=== PATIENT | female | born 1945 | race African-American/Black ===

== ENCOUNTER 2018-03-18 01:15 | Inpatient (IN) | payer MEDICARE, BC ==
[~2018-03-18] VITALS: Ht 165.1 cm; Wt 63.5 kg
[2018-03-18 02:27] LABS: BASOPHILS % 0.8 % (0.0-2.0); EOSINOPHILS % 0.1 % (0.0-5.0); HEMATOCRIT. 48.4 % (36.0-48.0); HEMOGLOBIN. 16.7 g/dL (12.0-16.0); LYMPHOCYTES % 12.6 % (20.0-50.0); MEAN CORPUSCULAR HEMOGLOBIN 34.7 pg (28.0-32.0); MEAN CORPUSCULAR VOLUME 100.7 fL (81.0-99.0); MEAN PLATELET VOLUME 10.9 fl (7.4-10.4); MONOCYTES % 5.4 % (2.0-8.0); NEUTROPHILS % 81.1 % (40.0-76.0); PLATELET 188 x1000/uL (130-400); RED BLOOD CELL COUNT 4.81 mill/uL (4.2-5.4); RED CELL DISTRIBUTION WIDTH 14.6 % (11.6-14.6)
[2018-03-18] MEDS ORDERED: ONDANSETRON HCL 4MG/2ML INJ IV ONE (02:30)
[2018-03-18 02:39] LABS: CHLORIDE 94 mEq/L (98-107)
[2018-03-18 03:10] LABS: PROTHROMBIN TIME 9.9 sec (9.1-11.1)
[2018-03-18] MEDS ORDERED: IPRATROPIUM/ALBUTEROL 0.5-3(2.5)MG/3ML NEB HHN ONE (03:30)
[2018-03-18] MEDS ORDERED: ASPIRIN 325MG TABLET PO ONE (03:30)
[2018-03-18] MEDS ORDERED: LEVOFLOXACIN 750MG PREMIX 150 ML IV ONE (03:45)
[2018-03-18] MEDS ORDERED: SODIUM CHLORIDE 0.9% 1000ML BAG (SEPSIS BOLUS) IV ONE (03:45)
[2018-03-18 06:00] VITALS: BP 154/95
[2018-03-18] MEDS ORDERED: ACETAMINOPHEN 325MG TABLET PO PRN (07:00)
[2018-03-18] MEDS ORDERED: ONDANSETRON HCL 4MG/2ML INJ IV PRN (07:00)
[2018-03-18] MEDS ORDERED: MAGNESIUM/ALUMINUM HYDROXIDE/SIMETHICONE 30ML UDC PO PRN (07:00)
[2018-03-18] MEDS ORDERED: CLONIDINE 0.1MG TABLET PO PRN (07:00)
[2018-03-18] MEDS ORDERED: IPRATROPIUM/ALBUTEROL 0.5-3(2.5)MG/3ML NEB INH PRN (07:00)
[2018-03-18] MEDS ORDERED: LEVOFLOXACIN 500MG PREMIX 100 ML IV SCH (07:00)
[2018-03-18] MEDS ORDERED: GUAIFENESIN 200MG/10ML SUGAR FREE UDC PO PRN (07:00)
[2018-03-18] MEDS ORDERED: DOCUSATE SODIUM 100MG CAPSULE PO PRN (07:00)
[2018-03-18 08:00] VITALS: BP 137/80
[2018-03-18] MEDS ORDERED: ENOXAPARIN 40MG/0.4ML SYR SUBCUT SCH (09:00)
[2018-03-18 09:47] VITALS: BP 137/80
[2018-03-18] MEDS: AMLODIPINE 10MG TABLET PO SCH (09:57)
[2018-03-18] MEDS: ASPIRIN 81MG EC TABLET PO SCH (09:57)
[2018-03-18] MEDS: PREGABALIN 50 MG CAPSULE PO SCH ×2 (10:00→21:32)
[2018-03-18 10:27] LABS: T4 FREE 0.96 ng/dL (0.76-1.46)
[2018-03-18 12:00] VITALS: BP 145/92
[2018-03-18] MEDS ORDERED: LORAZEPAM 2MG/ML CPJ IV PRN (14:15)
[2018-03-18] MEDS ORDERED: THIAMINE HCL 100MG TABLET PO SCH (14:30)
[2018-03-18 16:00] VITALS: BP 146/91
[2018-03-18] MEDS: CHLORDIAZEPOXIDE 5 MG CAPSULE PO SCH ×2 (16:01→21:32)
[2018-03-18] MEDS: FOLIC ACID 1MG TABLET PO SCH (16:02)
[2018-03-18] MEDS: MULTIVITAMINS,THER W-MINERALS TABLET PO SCH (16:02)
[2018-03-18] MEDS: HYDROCODONE/ACETAMINOPHEN 5/325MG TABLET PO PRN ×2 (16:04→21:34)
[2018-03-18 16:50] LABS: CLARITY URINE CLEAR (CLEAR); COLOR URINE YELLOW (YELLOW); KETONES URINE NEGATIVE (NEGATIVE); LEUKOCYTE ESTERASE URINE NEGATIVE (NEGATIVE); NITRITE URINE NEGATIVE (NEGATIVE); OCCULT BLOOD URINE TRACE (NEGATIVE); PH URINE 6.5 (4.5-8.0); PROTEIN URINE NEGATIVE (NEGATIVE); SPECIFIC GRAVITY URINE 1.004 (1.005-1.030); UROBILINOGEN URINE 0.2 E.U./dL (0.2-1.0)
[2018-03-18 17:12] LABS: *AMPHETAMINES SCREEN URINE NEGATIVE (NEGATIVE); *BARBITURATES SCREEN URINE NEGATIVE (NEGATIVE); *BENZODIAZEPINES SCREEN URINE NEGATIVE (NEGATIVE); *COCAINE SCREEN URINE NEGATIVE (NEGATIVE)
[2018-03-18 17:13] LABS: CANNABINOID URINE SCREEN PRESUMTIVE POSITIVE (NEGATIVE); METHADONE URINE SCREEN NEGATIVE (NEGATIVE); OPIATES URINE SCREEN PRESUMTIVE POSITIVE (NEGATIVE); PHENCYCLIDINE URINE SCREEN NEGATIVE (NEGATIVE)
[2018-03-18] MEDS ORDERED: LYR25 MT (18:49)
[2018-03-18] MEDS ORDERED: AMLO10TA4 MT (18:55)
[2018-03-18] MEDS: IPRATROPIUM/ALBUTEROL 0.5-3(2.5)MG/3ML NEB HHN SCH (19:54)
[2018-03-18 20:00] VITALS: BP 146/107
[2018-03-18 23:37] LABS: CREATINE KINASE 342 IU/L (26-192)
[2018-03-19] VITALS (11 sets, daily range): BP systolic 98–177; BP diastolic 54–101
[2018-03-19] MEDS: CHLORDIAZEPOXIDE 5 MG CAPSULE PO SCH ×3 (01:29→21:56)
[2018-03-19] MEDS: IPRATROPIUM/ALBUTEROL 0.5-3(2.5)MG/3ML NEB HHN SCH ×2 (02:07→20:50)
[2018-03-19] MEDS: LEVOFLOXACIN 250MG PREMIX 50 ML IV SCH (02:56)
[2018-03-19 05:12] LABS: HEMATOCRIT. 40.3 % (36.0-48.0); MEAN CORPUSCULAR HEMOGLOBIN 34.7 pg (28.0-32.0); MEAN CORPUSCULAR VOLUME 99.7 fL (81.0-99.0); MEAN PLATELET VOLUME 9.5 fl (7.4-10.4); PLATELET 146 x1000/uL (130-400); RED BLOOD CELL COUNT 4.04 mill/uL (4.2-5.4); RED CELL DISTRIBUTION WIDTH 14.7 % (11.6-14.6)
[2018-03-19 06:27] LABS: CHLORIDE 102 mEq/L (98-107)
[2018-03-19 06:43] LABS: HDL CHOLESTEROL 95 mg/dL (40-59); LDL CHOLESTEROL 62 mg/dL (5-100)
[2018-03-19] MEDS ORDERED: KCL 10MEQ/50ML PREMIX 50 ML IV ONE (08:11)
[2018-03-19] MEDS ORDERED: IODIXANOL 320MG/ML 100 ML BOTTLE IV ONE (08:14)
[2018-03-19] MEDS ORDERED: LIDOCAINE HCL 1% 20ML VIAL (Pyxis) INJ ONE (08:14)
[2018-03-19] MEDS ORDERED: MIDAZOLAM HCL 2 MG/2 ML VIAL ONE (08:14)
[2018-03-19] MEDS ORDERED: FENTANYL CITRATE/PF 50MCG/ML 2ML VIAL ONE (08:14)
[2018-03-19] MEDS ORDERED: CEFAZOLIN 1000MG PREMIX 50 ML IV ONE (08:41)
[2018-03-19] MEDS: THIAMINE HCL 100MG TABLET PO SCH (09:00)
[2018-03-19] MEDS: FOLIC ACID 1MG TABLET PO SCH (09:00)
[2018-03-19] MEDS: MULTIVITAMINS,THER W-MINERALS TABLET PO SCH (09:00)
[2018-03-19] MEDS ORDERED: ATROPINE SULFATE 1MG/10ML SYR IV PRN (09:00)
[2018-03-19] MEDS ORDERED: ACETAMINOPHEN 325MG TABLET PO PRN (09:00)
[2018-03-19] MEDS: AMLODIPINE 10MG TABLET PO SCH (09:00)
[2018-03-19] MEDS: PREGABALIN 50 MG CAPSULE PO SCH ×2 (09:00→21:57)
[2018-03-19] MEDS: ASPIRIN 81MG EC TABLET PO SCH (09:00)
[2018-03-19 10:08] LABS: ATYPICAL LYMPHOCYTES 1
[2018-03-19 10:10] LABS: PLATELET ESTIMATE NORMAL
[2018-03-19] MEDS: HYDROCODONE/ACETAMINOPHEN 5/325MG TABLET PO PRN ×3 (10:22→22:03)
[2018-03-19] MEDS: BENZONATATE 100MG CAPSULE PO SCH ×3 (12:22→21:56)
[2018-03-20] VITALS (10 sets, daily range): BP systolic 113–143; BP diastolic 56–87
[2018-03-20] MEDS: IPRATROPIUM/ALBUTEROL 0.5-3(2.5)MG/3ML NEB HHN SCH ×4 (01:03→20:58)
[2018-03-20] MEDS: LEVOFLOXACIN 250MG PREMIX 50 ML IV SCH (04:08)
[2018-03-20] MEDS: HYDROCODONE/ACETAMINOPHEN 5/325MG TABLET PO PRN ×2 (04:26→20:05)
[2018-03-20 05:56] LABS: CHLORIDE 103 mEq/L (98-107)
[2018-03-20 06:08] LABS: BASOPHILS % 0.8 % (0.0-2.0); EOSINOPHILS % 1.2 % (0.0-5.0); HEMATOCRIT. 41.6 % (36.0-48.0); HEMOGLOBIN. 14.4 g/dL (12.0-16.0); LYMPHOCYTES % 33.7 % (20.0-50.0); MEAN CORPUSCULAR HEMOGLOBIN 34.5 pg (28.0-32.0); MEAN CORPUSCULAR VOLUME 99.7 fL (81.0-99.0); MEAN PLATELET VOLUME 9.8 fl (7.4-10.4); MONOCYTES % 14.7 % (2.0-8.0); NEUTROPHILS % 49.6 % (40.0-76.0); PLATELET 147 x1000/uL (130-400); RED BLOOD CELL COUNT 4.17 mill/uL (4.2-5.4); RED CELL DISTRIBUTION WIDTH 14.7 % (11.6-14.6)
[2018-03-20] MEDS: CHLORDIAZEPOXIDE 5 MG CAPSULE PO SCH ×3 (07:12→22:04)
[2018-03-20] MEDS: BENZONATATE 100MG CAPSULE PO SCH ×3 (07:12→22:04)
[2018-03-20] MEDS: FOLIC ACID 1MG TABLET PO SCH (09:39)
[2018-03-20] MEDS: ASPIRIN 81MG EC TABLET PO SCH (09:39)
[2018-03-20] MEDS: MULTIVITAMINS,THER W-MINERALS TABLET PO SCH (09:39)
[2018-03-20] MEDS: THIAMINE HCL 100MG TABLET PO SCH (09:39)
[2018-03-20] MEDS: PREGABALIN 50 MG CAPSULE PO SCH ×2 (09:39→21:00)
[2018-03-20] MEDS: AMLODIPINE 10MG TABLET PO SCH (09:39)
[2018-03-20] MEDS: CARVEDILOL 3.125 MG TABLET PO SCH ×2 (15:21→22:05)
[2018-03-21] VITALS (12 sets, daily range): BP systolic 98–138; BP diastolic 55–83
[2018-03-21] MEDS: IPRATROPIUM/ALBUTEROL 0.5-3(2.5)MG/3ML NEB HHN SCH ×4 (02:00→21:04)
[2018-03-21] MEDS: HYDROCODONE/ACETAMINOPHEN 5/325MG TABLET PO PRN ×3 (06:10→19:30)
[2018-03-21] MEDS: BENZONATATE 100MG CAPSULE PO SCH ×3 (06:10→21:58)
[2018-03-21] MEDS: CHLORDIAZEPOXIDE 5 MG CAPSULE PO SCH ×3 (06:10→21:58)
[2018-03-21] MEDS: THIAMINE HCL 100MG TABLET PO SCH (08:46)
[2018-03-21] MEDS: ASPIRIN 81MG EC TABLET PO SCH (08:46)
[2018-03-21] MEDS: MULTIVITAMINS,THER W-MINERALS TABLET PO SCH (08:46)
[2018-03-21] MEDS: FOLIC ACID 1MG TABLET PO SCH (08:46)
[2018-03-21] MEDS: PREGABALIN 50 MG CAPSULE PO SCH ×2 (08:47→21:58)
[2018-03-21] MEDS: CARVEDILOL 3.125 MG TABLET PO SCH ×2 (08:49→21:58)
[2018-03-21] MEDS: LEVOFLOXACIN 250MG TABLET PO SCH (10:07)
[2018-03-21] MEDS ORDERED: FUROSEMIDE 40MG/4ML VIAL IVP NR (14:00)
[2018-03-22] VITALS (12 sets, daily range): BP systolic 90–130; BP diastolic 46–83
[2018-03-22] MEDS: IPRATROPIUM/ALBUTEROL 0.5-3(2.5)MG/3ML NEB HHN SCH ×2 (01:10→08:44)
[2018-03-22] MEDS: BENZONATATE 100MG CAPSULE PO SCH ×3 (05:02→21:50)
[2018-03-22] MEDS: CHLORDIAZEPOXIDE 5 MG CAPSULE PO SCH ×3 (05:02→21:47)
[2018-03-22] MEDS: HYDROCODONE/ACETAMINOPHEN 5/325MG TABLET PO PRN ×3 (05:03→23:44)
[2018-03-22 07:16] LABS: CHLORIDE 103 mEq/L (98-107)
[2018-03-22] MEDS: PREGABALIN 50 MG CAPSULE PO SCH ×2 (08:03→21:51)
[2018-03-22] MEDS: MULTIVITAMINS,THER W-MINERALS TABLET PO SCH (08:03)
[2018-03-22] MEDS: FOLIC ACID 1MG TABLET PO SCH (08:03)
[2018-03-22] MEDS: THIAMINE HCL 100MG TABLET PO SCH (08:03)
[2018-03-22] MEDS: CARVEDILOL 3.125 MG TABLET PO SCH ×2 (08:03→21:50)
[2018-03-22] MEDS: ASPIRIN 81MG EC TABLET PO SCH (08:04)
[2018-03-22] MEDS ORDERED: POTASSIUM CHLORIDE 20MEQ TABLET SR PO SCH (11:00)
[2018-03-22] MEDS: LEVOFLOXACIN 250MG TABLET PO SCH (11:12)
[2018-03-22] MEDS: AZITHROMYCIN 500 MG TABLET PO SCH (13:00)
[2018-03-22] MEDS ORDERED: GUAIFENESIN-DM 200MG-20MG/10ML UDC PO PRN (13:15)
[2018-03-22] MEDS: IPRATROPIUM BROMIDE (0.02%) 0.5MG/2.5ML NEB HHN SCH ×2 (16:00→21:51)
[2018-03-22 19:51] LABS: CHLORIDE 101 mEq/L (98-107)
[2018-03-23] VITALS (8 sets, daily range): BP systolic 94–150; BP diastolic 57–116
[2018-03-23] MEDS: IPRATROPIUM BROMIDE (0.02%) 0.5MG/2.5ML NEB HHN SCH ×3 (02:24→13:15)
[2018-03-23] MEDS: HYDROCODONE/ACETAMINOPHEN 5/325MG TABLET PO PRN (04:57)
[2018-03-23] MEDS: BENZONATATE 100MG CAPSULE PO SCH (05:04)
[2018-03-23] MEDS: CHLORDIAZEPOXIDE 5 MG CAPSULE PO SCH (05:04)
[2018-03-23 08:09] LABS: CHLORIDE 103 mEq/L (98-107)
[2018-03-23] MEDS: PREGABALIN 50 MG CAPSULE PO SCH (08:39)
[2018-03-23] MEDS: THIAMINE HCL 100MG TABLET PO SCH (08:43)
[2018-03-23] MEDS: FOLIC ACID 1MG TABLET PO SCH (08:43)
[2018-03-23] MEDS: MULTIVITAMINS,THER W-MINERALS TABLET PO SCH (08:43)
[2018-03-23] MEDS: ASPIRIN 81MG EC TABLET PO SCH (08:43)
[2018-03-23] MEDS: AZITHROMYCIN 500 MG TABLET PO SCH (08:43)
[2018-03-23] MEDS: CARVEDILOL 3.125 MG TABLET PO SCH (08:45)
== END 2018-03-23 13:10 | disposition home health service (06) | DRG 280 ==
LOC: ER 01:15 → 7WST 03:31 → EDBEDREQ 03:33 → EDBEDREQTM 03:33 → EDBEDREQSVC 03:33 → ENRESERV 04:20 → 3WST 03-19 09:20
PROVIDERS: ADMIT Hospitalist; ATTEND Hospitalist
PROC: 4A023N7 Measurement of Cardiac Sampling and Pressure, Left Heart, Percutaneous Approach (ICD-10-PCS; principal; 2018-03-19)
PROC: B2111ZZ Fluoroscopy of Multiple Coronary Arteries using Low Osmolar Contrast (ICD-10-PCS; 2018-03-19)
DX: I21.4 Non-ST elevation (NSTEMI) myocardial infarction (principal); J96.00 Acute respiratory failure, unspecified whether with hypoxia or hypercapnia; I40.0 Infective myocarditis; E87.1 Hypo-osmolality and hyponatremia; E87.2 Acidosis; E78.5 Hyperlipidemia, unspecified; B34.9 Viral infection, unspecified; I10 Essential (primary) hypertension; I16.0 Hypertensive urgency; G62.9 Polyneuropathy, unspecified; J40 Bronchitis, not specified as acute or chronic; F41.9 Anxiety disorder, unspecified; F12.90 Cannabis use, unspecified, uncomplicated; R73.9 Hyperglycemia, unspecified; R25.1 Tremor, unspecified; Z87.891 Personal history of nicotine dependence; Z90.710 Acquired absence of both cervix and uterus; Z91.012 Allergy to eggs; Z91.018 Allergy to other foods; Z79.899 Other long term (current) drug therapy; Z82.49 Family history of ischemic heart disease and other diseases of the circulatory system; Z83.3 Family history of diabetes mellitus
CPT/HCPCS: 36415; 71045; 76700; 78582; 80048; 80061; 80305; 82550; 82553; 83036; 83605; 83735; 83880; 84145; 84439; 84443; 84484; 85379; 87804; 93005; 93306; 93458; 93970; 94618; 94640; 97162; A9558; C1760; C1769; C1887; C1893; J0690; J1644; J1650; J1940; J1956; J2250; J2405; J3010; J3480; J3490; J7030; J7040; J7050; J7620; Q9967

== ENCOUNTER 2018-06-04 11:23 | Inpatient (IN) | payer MEDICARE, BC ==
[~2018-06-04] VITALS: Ht 165.1 cm; Wt 59.9 kg
[~2018-06-04 11:23] MED LIST: AMLO10TA4 MT; LYR25 MT
[2018-06-04] MEDS ORDERED: CLONIDINE 0.2MG TABLET PO ONE (12:45)
[2018-06-04] MEDS ORDERED: ASPIRIN 81MG TABLET PO ONE (12:45)
[2018-06-04 13:15] LABS: HEMATOCRIT. 52.2 % (36.0-48.0); HEMOGLOBIN. 18.1 g/dL (12.0-16.0); MEAN CORPUSCULAR VOLUME 97.9 fL (81.0-99.0); MEAN PLATELET VOLUME 9.5 fl (7.4-10.4); PLATELET 230 x1000/uL (130-400); RED BLOOD CELL COUNT 5.33 mill/uL (4.2-5.4); RED CELL DISTRIBUTION WIDTH 13.8 % (11.6-14.6)
[2018-06-04 13:26] LABS: CHLORIDE 96 mEq/L (98-107)
[2018-06-04 13:30] LABS: D-DIMER 0.82 mg/L FEU (<0.50); INR 1.1; PARTIAL THROMBOPLASTIN TIME 28.9 sec (23.4-31.0); PROTHROMBIN TIME 10.7 sec (9.1-11.1)
[2018-06-04 13:49] LABS: PLATELET ESTIMATE NORMAL
[2018-06-04] MEDS ORDERED: NITROGLYCERIN 0.4MG TABLET SL SL PRN (16:45)
[2018-06-04] MEDS ORDERED: ACETAMINOPHEN 325MG TABLET PO PRN (16:45)
[2018-06-04] MEDS ORDERED: IPRATROPIUM/ALBUTEROL 0.5-3(2.5)MG/3ML NEB INH PRN (16:45)
[2018-06-04] MEDS ORDERED: CLONIDINE 0.1MG TABLET PO PRN (16:45)
[2018-06-04] MEDS ORDERED: GUAIFENESIN 200MG/10ML SUGAR FREE UDC PO PRN (16:45)
[2018-06-04] MEDS ORDERED: LORAZEPAM 0.5MG TABLET PO PRN (16:45)
[2018-06-04] MEDS ORDERED: NA PHOS,M-B/NA PHOS,DI-BA ENEMA 118ML PR PRN (16:45)
[2018-06-04] MEDS ORDERED: ONDANSETRON HCL 4MG/2ML INJ IV PRN (16:45)
[2018-06-04] MEDS ORDERED: MAGNESIUM/ALUMINUM HYDROXIDE/SIMETHICONE 30ML UDC PO PRN (16:45)
[2018-06-04] MEDS ORDERED: DOCUSATE SODIUM 100MG CAPSULE PO PRN (16:45)
[2018-06-04] MEDS ORDERED: DIPHENHYDRAMINE 50MG/ML VIAL IV PRN (16:45)
[2018-06-04] MEDS ORDERED: HYDROCODONE/ACETAMINOPHEN 5/325MG TABLET PO ONE (18:45)
[2018-06-04] MEDS ORDERED: MORPHINE SULFATE 4 MG/ML CPJ (NOT FOR IM USE) IV PRN (21:38)
[2018-06-04 21:43] LABS: CLARITY URINE CLEAR (CLEAR); COLOR URINE YELLOW (YELLOW); KETONES URINE NEGATIVE (NEGATIVE); LEUKOCYTE ESTERASE URINE NEGATIVE (NEGATIVE); NITRITE URINE NEGATIVE (NEGATIVE); OCCULT BLOOD URINE NEGATIVE (NEGATIVE); PROTEIN URINE NEGATIVE (NEGATIVE); UROBILINOGEN URINE 0.2 E.U./dL (0.2-1.0)
[2018-06-04 21:53] LABS: *AMPHETAMINES SCREEN URINE NEGATIVE (NEGATIVE); *BARBITURATES SCREEN URINE NEGATIVE (NEGATIVE); *BENZODIAZEPINES SCREEN URINE NEGATIVE (NEGATIVE); *COCAINE SCREEN URINE NEGATIVE (NEGATIVE); METHADONE URINE SCREEN NEGATIVE (NEGATIVE); OPIATES URINE SCREEN NEGATIVE (NEGATIVE); PHENCYCLIDINE URINE SCREEN NEGATIVE (NEGATIVE)
[2018-06-04 21:55] LABS: CANNABINOID URINE SCREEN NEGATIVE (NEGATIVE)
[2018-06-04 22:00] VITALS: BP 131/86
[2018-06-04] MEDS ORDERED: ZOLPIDEM TARTRATE 5MG TABLET PO PRN (22:03)
[2018-06-04] MEDS: METOPROLOL TARTRATE 25MG TABLET PO SCH (22:21)
[2018-06-04] MEDS: FAMOTIDINE 20MG TABLET PO SCH (22:21)
[2018-06-04 22:32] VITALS: BP 131/86
[2018-06-05] VITALS: BP 95/53
[2018-06-05 02:02] LABS: CREATINE KINASE 81 IU/L (26-192)
[2018-06-05 02:04] LABS: CREATINE KINASE MB FRACTION 1.3 ng/mL (0.5-3.6)
[2018-06-05 04:00] VITALS: BP 110/68
[2018-06-05] MEDS ORDERED: PREG150C PO (05:41)
[2018-06-05] MEDS: TRAMADOL 50MG TABLET PO PRN ×2 (06:16→13:48)
[2018-06-05 08:00] VITALS: BP 127/79
[2018-06-05] MEDS: ASPIRIN 325MG EC TABLET PO SCH (08:42)
[2018-06-05] MEDS: ENOXAPARIN 40MG/0.4ML SYR SUBCUT SCH (08:43)
[2018-06-05] MEDS: METOPROLOL TARTRATE 25MG TABLET PO SCH ×2 (08:43→20:53)
[2018-06-05] MEDS: AMLODIPINE 10MG TABLET PO SCH (08:43)
[2018-06-05] MEDS: FAMOTIDINE 20MG TABLET PO SCH ×2 (08:43→20:52)
[2018-06-05 09:24] LABS: CREATINE KINASE 75 IU/L (26-192); CREATINE KINASE MB FRACTION 1.5 ng/mL (0.5-3.6)
[2018-06-05 12:00] VITALS: BP 105/83
[2018-06-05 16:00] VITALS: BP 120/88
[2018-06-05 20:00] VITALS: BP 137/86
[2018-06-06] VITALS: BP 116/76
[2018-06-06 04:00] VITALS: BP 132/83
[2018-06-06] MEDS: ASPIRIN 325MG EC TABLET PO SCH (08:22)
[2018-06-06] MEDS: AMLODIPINE 10MG TABLET PO SCH (08:22)
[2018-06-06] MEDS: FAMOTIDINE 20MG TABLET PO SCH ×2 (08:22→20:29)
[2018-06-06] MEDS: METOPROLOL TARTRATE 25MG TABLET PO SCH ×2 (08:23→20:29)
[2018-06-06] MEDS: ENOXAPARIN 40MG/0.4ML SYR SUBCUT SCH (08:24)
[2018-06-06 12:10] VITALS: BP 118/83
[2018-06-06] MEDS: TRAMADOL 50MG TABLET PO PRN ×2 (12:49→20:30)
[2018-06-06] MEDS: GABAPENTIN 100MG CAPSULE PO SCH ×2 (14:00→20:29)
[2018-06-06 16:21] VITALS: BP 134/78
[2018-06-06 20:00] VITALS: BP 118/80
[2018-06-07] VITALS: BP 119/75
[2018-06-07 04:00] VITALS: BP 113/56
[2018-06-07] MEDS: GABAPENTIN 100MG CAPSULE PO SCH (05:25)
[2018-06-07] MEDS: TRAMADOL 50MG TABLET PO PRN (05:34)
[2018-06-07 08:00] VITALS: BP 116/73
[2018-06-07] MEDS: METOPROLOL TARTRATE 25MG TABLET PO SCH (09:52)
[2018-06-07] MEDS: AMLODIPINE 10MG TABLET PO SCH (09:52)
[2018-06-07] MEDS: FAMOTIDINE 20MG TABLET PO SCH (09:52)
[2018-06-07] MEDS: ASPIRIN 325MG EC TABLET PO SCH (09:52)
[2018-06-07] MEDS: ENOXAPARIN 40MG/0.4ML SYR SUBCUT SCH (09:53)
[2018-06-07 13:08] VITALS: BP 116/73
== END 2018-06-07 14:40 | disposition home or self-care (01) | DRG 313 ==
LOC: ER 13:16 → 5WST 15:06 → EDBEDREQTM 15:09 → EDBEDREQ 15:09 → SUPCPDRO 16:38 → ENRESERV 20:44
PROVIDERS: ADMIT Internal Medicine; ATTEND Internal Medicine
DX: R07.89 Other chest pain (principal); I10 Essential (primary) hypertension; E78.5 Hyperlipidemia, unspecified; J44.9 Chronic obstructive pulmonary disease, unspecified; G62.9 Polyneuropathy, unspecified; I25.10 Atherosclerotic heart disease of native coronary artery without angina pectoris; I25.2 Old myocardial infarction; Z87.891 Personal history of nicotine dependence; Z91.012 Allergy to eggs; Z91.018 Allergy to other foods; Z79.899 Other long term (current) drug therapy
CPT/HCPCS: 36415; 71045; 80061; 80305; 82550; 82553; 83036; 83880; 84484; 85379; 93005; 93970; 94640; 99285; J1650; J2270; J7620

== ENCOUNTER 2018-07-31 09:30 | Inpatient (IN) | payer MEDICARE, BC ==
[~2018-07-31] VITALS: Ht 157.5 cm; Wt 74.8 kg
[2018-07-31] MEDS: ENOXAPARIN 40MG/0.4ML SYR SUBCUT SCH (08:00)
[~2018-07-31 09:30] MED LIST changes: -LYR25 MT; +PREG150C PO
[2018-07-31] MEDS ORDERED: LORAZEPAM 0.5MG TABLET PO ONE (10:30)
[2018-07-31] MEDS ORDERED: METOPROLOL TARTRATE 25MG TABLET PO ONE (10:30)
[2018-07-31] MEDS ORDERED: AMLODIPINE 10MG TABLET PO ONE (10:30)
[2018-07-31] MEDS ORDERED: ALBUTEROL (0.083%) 2.5MG/3ML NEB HHN STA (11:06)
[2018-07-31 11:49] LABS: BASOPHILS % 1.2 % (0.0-2.0); HEMATOCRIT. 43.6 % (36.0-48.0); LYMPHOCYTES % 14.4 % (20.0-50.0); MEAN CORPUSCULAR HEMOGLOBIN 33.7 pg (28.0-32.0); MEAN CORPUSCULAR VOLUME 98.2 fL (81.0-99.0); MEAN PLATELET VOLUME 8.7 fl (7.4-10.4); NEUTROPHILS % 76.4 % (40.0-76.0); PLATELET 257 x1000/uL (130-400); RED BLOOD CELL COUNT 4.44 mill/uL (4.2-5.4); RED CELL DISTRIBUTION WIDTH 15.6 % (11.6-14.6)
[2018-07-31 11:52] LABS: CHLORIDE 102 mEq/L (98-107)
[2018-07-31 11:55] LABS: PARTIAL THROMBOPLASTIN TIME 28.2 sec (23.4-31.0)
[2018-07-31] MEDS ORDERED: LORAZEPAM 2MG/ML CPJ IV ONE (15:00)
[2018-07-31] MEDS ORDERED: CHLORDIAZEPOXIDE 5 MG CAPSULE PO ONE (15:00)
[2018-07-31] MEDS ORDERED: DOCUSATE SODIUM 100MG CAPSULE PO PRN (17:15)
[2018-07-31] MEDS ORDERED: ACETAMINOPHEN 325MG TABLET PO PRN (17:15)
[2018-07-31] MEDS ORDERED: GUAIFENESIN 200MG/10ML SUGAR FREE UDC PO PRN (17:15)
[2018-07-31] MEDS ORDERED: MAGNESIUM/ALUMINUM HYDROXIDE/SIMETHICONE 30ML UDC PO PRN (17:15)
[2018-07-31] MEDS ORDERED: CLONIDINE 0.1MG TABLET PO PRN (17:15)
[2018-07-31] MEDS ORDERED: ONDANSETRON HCL 4MG/2ML INJ IV PRN (17:15)
[2018-07-31] MEDS ORDERED: IPRATROPIUM/ALBUTEROL 0.5-3(2.5)MG/3ML NEB INH PRN (17:15)
[2018-07-31] MEDS ORDERED: IPRATROPIUM/ALBUTEROL 0.5-3(2.5)MG/3ML NEB HHN SCH (17:15)
[2018-07-31] MEDS ORDERED: LEVOFLOXACIN 500MG PREMIX 100 ML IV NR (17:29)
[2018-07-31] MEDS ORDERED: GUAIFENESIN 600MG ER TABLET PO NR (18:03)
[2018-07-31] MEDS ORDERED: GUAIFENESIN/DM 600MG/30MG ER TAB 12HR PO NR (18:15)
[2018-07-31] MEDS: ATORVASTATIN CALCIUM 10MG TABLET PO SCH (21:00)
[2018-07-31] MEDS ORDERED: MVI, ADULT NO.1 10 ML, FOLIC ACID 1 MG, THIAMINE HCL 100 MG in SODIUM CHLORIDE 0.9% 1,0... IV SCH ×4 (21:00)
[2018-07-31 23:31] LABS: CREATINE KINASE 53 IU/L (26-192)
[2018-07-31 23:32] LABS: CREATINE KINASE MB FRACTION 1.1 ng/mL (0.5-3.6)
[2018-08-01] MEDS: ZOLPIDEM TARTRATE 5MG TABLET PO PRN (03:22)
[2018-08-01] MEDS: METHYLPREDNISOLONE SOD SUCC 125 MG/2 ML VIAL IV SCH ×4 (07:45→22:00)
[2018-08-01 08:00] LABS: CREATINE KINASE 60 IU/L (26-192)
[2018-08-01 08:02] LABS: CREATINE KINASE MB FRACTION 1.3 ng/mL (0.5-3.6)
[2018-08-01] MEDS: LORAZEPAM 0.5MG TABLET PO PRN ×2 (08:10→13:17)
[2018-08-01] MEDS: FAMOTIDINE 20MG TABLET PO SCH ×2 (08:10→21:23)
[2018-08-01] MEDS: TRAMADOL 50MG TABLET PO PRN (08:10)
[2018-08-01] MEDS: GUAIFENESIN/DM 600MG/30MG ER TAB 12HR PO SCH ×2 (09:00→21:50)
[2018-08-01] MEDS: ZINC SULFATE 220 MG ( 50 ) CAPSULE PO SCH (09:00)
[2018-08-01] MEDS: ASCORBIC ACID 500 MG TABLET PO SCH ×2 (09:00→21:50)
[2018-08-01] MEDS: ENOXAPARIN 40MG/0.4ML SYR SUBCUT SCH (09:00)
[2018-08-01] MEDS: SUCRALFATE 1 G/10 ML UDC PO SCH ×4 (09:00→21:24)
[2018-08-01] MEDS ORDERED: AMLODIPINE 10MG TABLET PO SCH (09:00)
[2018-08-01] MEDS: NITROGLYCERIN 0.4MG TABLET SL SL PRN ×2 (10:48→11:00)
[2018-08-01] MEDS: CHLORDIAZEPOXIDE 25MG CAPSULE PO SCH ×3 (11:45→21:29)
[2018-08-01] MEDS: DILTIAZEM HCL 60MG TABLET PO SCH ×3 (11:45→18:09)
[2018-08-01] MEDS ORDERED: LORAZEPAM 2MG/ML CPJ IV ONE ×2 (14:15→16:30)
[2018-08-01] MEDS ORDERED: SODIUM CHLORIDE 0.9% 1,000 ML IV ONE (16:22)
[2018-08-01] MEDS ORDERED: CHLORDIAZEPOXIDE 25MG CAPSULE PO ONE (16:30)
[2018-08-01] MEDS: SODIUM CHLORIDE 0.9% 1,000 ML IV SCH (16:32)
[2018-08-01] MEDS ORDERED: MVI, ADULT NO.1 10 ML, FOLIC ACID 1 MG, THIAMINE HCL 100 MG in SODIUM CHLORIDE 0.9% 1,0... IV SCH ×4 (17:15)
[2018-08-01] MEDS ORDERED: LEVOFLOXACIN 500MG PREMIX 100 ML IV NR (17:53)
[2018-08-01] MEDS ORDERED: ATORVASTATIN CALCIUM 10MG TABLET PO SCH (21:07)
[2018-08-01] MEDS: ATORVASTATIN CALCIUM 10MG TABLET PO SCH (22:30)
[2018-08-02] MEDS: DILTIAZEM HCL 60MG TABLET PO SCH ×4 (00:24→17:51)
[2018-08-02] MEDS: SODIUM CHLORIDE 0.9% 1,000 ML IV SCH ×2 (02:53→13:36)
[2018-08-02] MEDS: CHLORDIAZEPOXIDE 25MG CAPSULE PO SCH ×3 (06:00→21:10)
[2018-08-02] MEDS: METHYLPREDNISOLONE SOD SUCC 125 MG/2 ML VIAL IV SCH ×3 (06:00→21:55)
[2018-08-02 09:17] VITALS: BP 126/85
[2018-08-02 09:44] VITALS: BP 126/85
[2018-08-02] MEDS: FAMOTIDINE 20MG TABLET PO SCH ×2 (09:54→21:10)
[2018-08-02] MEDS: ZINC SULFATE 220 MG ( 50 ) CAPSULE PO SCH (09:54)
[2018-08-02] MEDS: SUCRALFATE 1 G/10 ML UDC PO SCH ×4 (09:54→21:10)
[2018-08-02] MEDS: GUAIFENESIN/DM 600MG/30MG ER TAB 12HR PO SCH ×2 (09:54→21:11)
[2018-08-02] MEDS: ASCORBIC ACID 500 MG TABLET PO SCH ×2 (09:54→21:10)
[2018-08-02] MEDS: ENOXAPARIN 40MG/0.4ML SYR SUBCUT SCH (09:58)
[2018-08-02] MEDS ORDERED: METO25TA6 MT (10:40)
[2018-08-02] MEDS ORDERED: ASPI-1158 MT (10:41)
[2018-08-02] MEDS ORDERED: FAMO20TA8 MT (10:45)
[2018-08-02] MEDS ORDERED: TRAM50TA3 MT (10:45)
[2018-08-02] MEDS: THIAMINE HCL 100MG TABLET PO SCH (10:49)
[2018-08-02] MEDS: METOPROLOL TARTRATE 25MG TABLET PO SCH ×2 (10:49→21:10)
[2018-08-02] MEDS: MULTIVITAMINS,THER W-MINERALS TABLET PO SCH (10:49)
[2018-08-02 12:00] VITALS: BP 129/90
[2018-08-02 16:00] VITALS: BP 100/67
[2018-08-02] MEDS ORDERED: LEVOFLOXACIN 500MG PREMIX 100 ML IV SCH (18:00)
[2018-08-02 20:00] VITALS: BP 105/66
[2018-08-02] MEDS: ATORVASTATIN CALCIUM 10MG TABLET PO SCH (21:10)
[2018-08-03] VITALS: BP 105/66
[2018-08-03 04:00] VITALS: BP 105/66
[2018-08-03] MEDS: SODIUM CHLORIDE 0.9% 1,000 ML IV SCH ×2 (04:00→13:03)
[2018-08-03] MEDS: CHLORDIAZEPOXIDE 25MG CAPSULE PO SCH ×3 (06:26→21:20)
[2018-08-03] MEDS: SUCRALFATE 1 G/10 ML UDC PO SCH ×4 (06:26→21:19)
[2018-08-03] MEDS: DILTIAZEM HCL 60MG TABLET PO SCH ×4 (06:26→18:33)
[2018-08-03] MEDS: METHYLPREDNISOLONE SOD SUCC 125 MG/2 ML VIAL IV SCH ×3 (06:27→21:20)
[2018-08-03 08:00] VITALS: BP 140/84
[2018-08-03] MEDS: ENOXAPARIN 40MG/0.4ML SYR SUBCUT SCH (08:53)
[2018-08-03] MEDS: THIAMINE HCL 100MG TABLET PO SCH (08:54)
[2018-08-03] MEDS: GUAIFENESIN/DM 600MG/30MG ER TAB 12HR PO SCH ×2 (08:55→21:20)
[2018-08-03] MEDS: METOPROLOL TARTRATE 25MG TABLET PO SCH ×2 (08:55→21:20)
[2018-08-03] MEDS: FAMOTIDINE 20MG TABLET PO SCH (08:56)
[2018-08-03] MEDS: ASCORBIC ACID 500 MG TABLET PO SCH ×2 (08:56→21:20)
[2018-08-03] MEDS: MULTIVITAMINS,THER W-MINERALS TABLET PO SCH (08:57)
[2018-08-03] MEDS: ZINC SULFATE 220 MG ( 50 ) CAPSULE PO SCH (08:57)
[2018-08-03] MEDS: FOLIC ACID 1MG TABLET PO SCH (08:58)
[2018-08-03 12:00] VITALS: BP 122/81
[2018-08-03 16:00] VITALS: BP 124/84
[2018-08-03] MEDS ORDERED: LEVOFLOXACIN 500MG PREMIX 100 ML IV SCH (18:00)
[2018-08-03 20:00] VITALS: BP 128/73
[2018-08-03] MEDS: ATORVASTATIN CALCIUM 10MG TABLET PO SCH (21:19)
[2018-08-04] VITALS: BP 125/72
[2018-08-04] MEDS: DILTIAZEM HCL 60MG TABLET PO SCH ×4 (00:27→17:48)
[2018-08-04] MEDS: SODIUM CHLORIDE 0.9% 1,000 ML IV SCH ×2 (03:48→22:06)
[2018-08-04 04:00] VITALS: BP 129/75
[2018-08-04] MEDS: CHLORDIAZEPOXIDE 25MG CAPSULE PO SCH (05:34)
[2018-08-04] MEDS: METHYLPREDNISOLONE SOD SUCC 125 MG/2 ML VIAL IV SCH ×3 (05:34→22:00)
[2018-08-04 08:00] VITALS: BP 132/72
[2018-08-04] MEDS: SUCRALFATE 1 G/10 ML UDC PO SCH ×4 (08:30→22:01)
[2018-08-04] MEDS: MULTIVITAMINS,THER W-MINERALS TABLET PO SCH (09:50)
[2018-08-04] MEDS: ASCORBIC ACID 500 MG TABLET PO SCH ×2 (09:51→22:01)
[2018-08-04] MEDS: GUAIFENESIN/DM 600MG/30MG ER TAB 12HR PO SCH ×2 (09:51→22:01)
[2018-08-04] MEDS: METOPROLOL TARTRATE 25MG TABLET PO SCH ×2 (09:51→22:03)
[2018-08-04] MEDS: FOLIC ACID 1MG TABLET PO SCH (09:51)
[2018-08-04] MEDS: THIAMINE HCL 100MG TABLET PO SCH (09:51)
[2018-08-04] MEDS: ZINC SULFATE 220 MG ( 50 ) CAPSULE PO SCH (09:51)
[2018-08-04] MEDS: FAMOTIDINE 20MG TABLET PO SCH (09:52)
[2018-08-04] MEDS: ENOXAPARIN 40MG/0.4ML SYR SUBCUT SCH (09:53)
[2018-08-04] MEDS: LEVOFLOXACIN 500MG TABLET PO SCH (12:23)
[2018-08-04] MEDS: CHLORDIAZEPOXIDE 5 MG CAPSULE PO SCH ×2 (13:07→22:01)
[2018-08-04] MEDS: ATORVASTATIN CALCIUM 10MG TABLET PO SCH (22:01)
[2018-08-04] MEDS: ZOLPIDEM TARTRATE 5MG TABLET PO PRN (22:01)
[2018-08-05] MEDS: DILTIAZEM HCL 60MG TABLET PO SCH ×3 (04:08→12:00)
[2018-08-05] MEDS: TRAMADOL 50MG TABLET PO PRN (05:56)
[2018-08-05] MEDS: CHLORDIAZEPOXIDE 5 MG CAPSULE PO SCH (06:47)
[2018-08-05] MEDS: SUCRALFATE 1 G/10 ML UDC PO SCH ×3 (06:47→16:56)
[2018-08-05] MEDS: METHYLPREDNISOLONE SOD SUCC 125 MG/2 ML VIAL IV SCH ×2 (06:47→13:49)
[2018-08-05 08:00] VITALS: BP 120/72
[2018-08-05] MEDS: METOPROLOL TARTRATE 25MG TABLET PO SCH (08:54)
[2018-08-05] MEDS: FOLIC ACID 1MG TABLET PO SCH (08:54)
[2018-08-05] MEDS: ZINC SULFATE 220 MG ( 50 ) CAPSULE PO SCH (08:55)
[2018-08-05] MEDS: MULTIVITAMINS,THER W-MINERALS TABLET PO SCH (08:55)
[2018-08-05] MEDS: GUAIFENESIN/DM 600MG/30MG ER TAB 12HR PO SCH (08:55)
[2018-08-05] MEDS: FAMOTIDINE 20MG TABLET PO SCH (08:55)
[2018-08-05] MEDS: THIAMINE HCL 100MG TABLET PO SCH (08:55)
[2018-08-05] MEDS: ASCORBIC ACID 500 MG TABLET PO SCH (08:55)
[2018-08-05] MEDS: ENOXAPARIN 40MG/0.4ML SYR SUBCUT SCH (08:57)
[2018-08-05 12:00] VITALS: BP 108/78
[2018-08-05] MEDS: LEVOFLOXACIN 500MG TABLET PO SCH (12:16)
[2018-08-05] MEDS ORDERED: CHLORDIAZEPOXIDE 5 MG CAPSULE PO SCH (14:00)
[2018-08-05 16:00] VITALS: BP 134/89
[2018-08-05 16:56] VITALS: BP 134/89
== END 2018-08-05 17:45 | DRG 191 ==
LOC: ER 10:17 → EDBEDREQ 15:00 → 8WST 15:05 → EDBEDREQ 15:13 → ENRESERV 08-02 07:15
PROVIDERS: ADMIT Internal Medicine; ATTEND Internal Medicine
DX: J44.1 Chronic obstructive pulmonary disease with (acute) exacerbation (principal); F10.239 Alcohol dependence with withdrawal, unspecified; I10 Essential (primary) hypertension; G62.9 Polyneuropathy, unspecified; I25.10 Atherosclerotic heart disease of native coronary artery without angina pectoris; Y90.9 Presence of alcohol in blood, level not specified; R29.810 Facial weakness; R26.89 Other abnormalities of gait and mobility; R53.81 Other malaise; I25.2 Old myocardial infarction; Z72.0 Tobacco use; Z82.49 Family history of ischemic heart disease and other diseases of the circulatory system; Z91.012 Allergy to eggs; Z91.018 Allergy to other foods; Z79.899 Other long term (current) drug therapy
CPT/HCPCS: 36415; 70551; 71045; 80061; 80320; 82550; 82553; 82962; 83036; 83880; 84443; 84484; 93005; 93970; 94640; 96365; 96366; 96375; 97110; 97116; 97162; 97166; 97530; 97535; 99284; 99285; C1893; J1650; J1956; J2060; J2930; J3411; J3490; J7030; J7611; G0480

== ENCOUNTER 2018-08-05 18:11 | Inpatient (IN) | payer MEDICARE, BC ==
[~2018-08-05] VITALS: Ht 157.5 cm; Wt 74.8 kg
[~2018-08-05 18:11] MED LIST changes: +ASPI-1158 MT; +FAMO20TA8 MT; +METO25TA6 MT; +TRAM50TA3 MT
[2018-08-05] MEDS ORDERED: CLONIDINE 0.1MG TABLET PO PRN (19:00)
[2018-08-05] MEDS ORDERED: NITROGLYCERIN 0.4MG TABLET SL SL PRN (19:00)
[2018-08-05] MEDS ORDERED: LORAZEPAM 1MG TABLET PO PRN (19:00)
[2018-08-05] MEDS ORDERED: ONDANSETRON HCL 4MG/2ML INJ IV PRN (19:00)
[2018-08-05] MEDS ORDERED: MAGNESIUM/ALUMINUM HYDROXIDE/SIMETHICONE 30ML UDC PO PRN (19:00)
[2018-08-05] MEDS ORDERED: ACETAMINOPHEN 325MG TABLET PO PRN (19:00)
[2018-08-05 20:00] VITALS: BP 119/64
[2018-08-05 21:00] VITALS: BP 109/64
[2018-08-05] MEDS: DILTIAZEM HCL 60MG TABLET PO SCH (21:00)
[2018-08-05] MEDS: METOPROLOL TARTRATE 25MG TABLET PO SCH (21:02)
[2018-08-05] MEDS: SUCRALFATE 1G TABLET PO SCH (21:02)
[2018-08-05] MEDS: ATORVASTATIN CALCIUM 10MG TABLET PO SCH (21:03)
[2018-08-05] MEDS: ZOLPIDEM TARTRATE 5MG TABLET PO PRN (21:03)
[2018-08-05] MEDS: ASCORBIC ACID 500 MG TABLET PO SCH (21:03)
[2018-08-05] MEDS: CHLORDIAZEPOXIDE 5 MG CAPSULE PO SCH (22:45)
[2018-08-05] MEDS: METHYLPREDNISOLONE SOD SUCC 125 MG/2 ML VIAL IV SCH (22:45)
[2018-08-06] MEDS: IPRATROPIUM/ALBUTEROL 0.5-3(2.5)MG/3ML NEB HHN SCH ×4 (00:34→16:00)
[2018-08-06] MEDS: SUCRALFATE 1G TABLET PO SCH ×4 (06:42→21:14)
[2018-08-06] MEDS: CHLORDIAZEPOXIDE 5 MG CAPSULE PO SCH (06:42)
[2018-08-06] MEDS: METHYLPREDNISOLONE SOD SUCC 125 MG/2 ML VIAL IV SCH ×2 (06:43→14:07)
[2018-08-06] MEDS: DILTIAZEM HCL 60MG TABLET PO SCH ×4 (06:50→17:47)
[2018-08-06 08:00] VITALS: BP 119/65
[2018-08-06] MEDS: ZINC SULFATE 220 MG ( 50 ) CAPSULE PO SCH (09:28)
[2018-08-06] MEDS: METOPROLOL TARTRATE 25MG TABLET PO SCH ×2 (09:29→21:00)
[2018-08-06] MEDS: THIAMINE HCL 100MG TABLET PO SCH (09:29)
[2018-08-06] MEDS: ASCORBIC ACID 500 MG TABLET PO SCH ×2 (09:29→21:15)
[2018-08-06] MEDS: FAMOTIDINE 20MG TABLET PO SCH (09:30)
[2018-08-06] MEDS: MULTIVITAMINS,THER W-MINERALS TABLET PO SCH (09:30)
[2018-08-06] MEDS: FOLIC ACID 1MG TABLET PO SCH (09:30)
[2018-08-06] MEDS: ENOXAPARIN 40MG/0.4ML SYR SUBCUT SCH (09:31)
[2018-08-06 10:05] LABS: BASOPHILS % 0.2 % (0.0-2.0); HEMATOCRIT. 48.2 % (36.0-48.0); HEMOGLOBIN. 16.4 g/dL (12.0-16.0); LYMPHOCYTES % 7.2 % (20.0-50.0); MEAN CORPUSCULAR HEMOGLOBIN 33.5 pg (28.0-32.0); MEAN CORPUSCULAR VOLUME 98.4 fL (81.0-99.0); MEAN PLATELET VOLUME 9.5 fl (7.4-10.4); MONOCYTES % 5.3 % (2.0-8.0); NEUTROPHILS % 87.3 % (40.0-76.0); PLATELET 172 x1000/uL (130-400); RED CELL DISTRIBUTION WIDTH 15.2 % (11.6-14.6)
[2018-08-06 10:16] LABS: CHLORIDE 103 mEq/L (98-107)
[2018-08-06] MEDS ORDERED: LEVOFLOXACIN 500MG TABLET PO SCH (11:00)
[2018-08-06] MEDS ORDERED: POTASSIUM CHLORIDE 20MEQ TABLET SR PO STA (11:35)
[2018-08-06] MEDS: BUPROPION HCL 150MG TABLET XL 24HR PO SCH (12:21)
[2018-08-06] MEDS: POTASSIUM CHLORIDE 20MEQ TABLET SR PO SCH ×2 (12:22→17:46)
[2018-08-06] MEDS ORDERED: KCL 20MEQ/100ML PREMIX 100 ML IV ONE (17:15)
[2018-08-06] MEDS ORDERED: POTASSIUM CHLORIDE 20MEQ/PACKET PO ONE (17:15)
[2018-08-06] MEDS ORDERED: IPRATROPIUM/ALBUTEROL 0.5-3(2.5)MG/3ML NEB HHN PRN (17:15)
[2018-08-06 20:00] VITALS: BP 115/68
[2018-08-06] MEDS: ZOLPIDEM TARTRATE 5MG TABLET PO PRN (21:15)
[2018-08-06] MEDS: ATORVASTATIN CALCIUM 10MG TABLET PO SCH (21:28)
[2018-08-06] MEDS: TRAMADOL 50MG TABLET PO PRN (21:36)
[2018-08-07] MEDS: DILTIAZEM HCL 60MG TABLET PO SCH ×5 (01:32→23:48)
[2018-08-07] MEDS: POTASSIUM CHLORIDE 20MEQ TABLET SR PO SCH (01:34)
[2018-08-07] MEDS: SUCRALFATE 1G TABLET PO SCH ×4 (06:03→21:06)
[2018-08-07 07:20] LABS: HEMATOCRIT. 42.1 % (36.0-48.0); HEMOGLOBIN. 14.3 g/dL (12.0-16.0); MEAN CORPUSCULAR VOLUME 97.2 fL (81.0-99.0); MEAN PLATELET VOLUME 8.7 fl (7.4-10.4); PLATELET 215 x1000/uL (130-400); RED BLOOD CELL COUNT 4.34 mill/uL (4.2-5.4); RED CELL DISTRIBUTION WIDTH 15.7 % (11.6-14.6)
[2018-08-07 08:00] VITALS: BP 117/68
[2018-08-07 08:20] LABS: CHLORIDE 108 mEq/L (98-107)
[2018-08-07 08:28] LABS: PHOSPHORUS 2.3 mg/dL (2.5-4.9)
[2018-08-07 08:42] LABS: CLARITY URINE CLEAR (CLEAR); COLOR URINE YELLOW (YELLOW); KETONES URINE NEGATIVE (NEGATIVE); LEUKOCYTE ESTERASE URINE NEGATIVE (NEGATIVE); NITRITE URINE NEGATIVE (NEGATIVE); OCCULT BLOOD URINE NEGATIVE (NEGATIVE); PH URINE 6.5 (4.5-8.0); PROTEIN URINE NEGATIVE (NEGATIVE); SPECIFIC GRAVITY URINE 1.015 (1.005-1.030); UROBILINOGEN URINE 0.2 E.U./dL (0.2-1.0)
[2018-08-07] MEDS: ZINC SULFATE 220 MG ( 50 ) CAPSULE PO SCH (08:43)
[2018-08-07] MEDS: BUPROPION HCL 150MG TABLET XL 24HR PO SCH (08:43)
[2018-08-07] MEDS: FOLIC ACID 1MG TABLET PO SCH (08:43)
[2018-08-07] MEDS: FAMOTIDINE 20MG TABLET PO SCH (08:43)
[2018-08-07] MEDS: ASCORBIC ACID 500 MG TABLET PO SCH ×2 (08:43→21:06)
[2018-08-07] MEDS: ENOXAPARIN 40MG/0.4ML SYR SUBCUT SCH (08:43)
[2018-08-07] MEDS: METOPROLOL TARTRATE 25MG TABLET PO SCH ×2 (08:44→21:06)
[2018-08-07] MEDS: THIAMINE HCL 100MG TABLET PO SCH (08:44)
[2018-08-07] MEDS: MULTIVITAMINS,THER W-MINERALS TABLET PO SCH (08:44)
[2018-08-07] MEDS ORDERED: POTASSIUM CHLORIDE 20MEQ TABLET SR PO SCH (09:00)
[2018-08-07] MEDS: TRAMADOL 50MG TABLET PO PRN (18:53)
[2018-08-07 20:00] VITALS: BP 118/61
[2018-08-07] MEDS: ATORVASTATIN CALCIUM 10MG TABLET PO SCH (21:06)
[2018-08-07 23:11] LABS: PLATELET ESTIMATE NORMAL
[2018-08-08] MEDS: SUCRALFATE 1G TABLET PO SCH ×4 (06:03→21:13)
[2018-08-08] MEDS: DILTIAZEM HCL 60MG TABLET PO SCH ×4 (06:07→23:46)
[2018-08-08 07:09] LABS: BASOPHILS % 0.1 % (0.0-2.0); EOSINOPHILS % 0.2 % (0.0-5.0); HEMATOCRIT. 44.1 % (36.0-48.0); HEMOGLOBIN. 14.9 g/dL (12.0-16.0); MEAN CORPUSCULAR HEMOGLOBIN 33.1 pg (28.0-32.0); MEAN CORPUSCULAR VOLUME 97.9 fL (81.0-99.0); MEAN PLATELET VOLUME 8.8 fl (7.4-10.4); MONOCYTES % 9.3 % (2.0-8.0); NEUTROPHILS % 76.4 % (40.0-76.0); PLATELET 232 x1000/uL (130-400); RED CELL DISTRIBUTION WIDTH 15.6 % (11.6-14.6)
[2018-08-08 07:10] LABS: CHLORIDE 103 mEq/L (98-107)
[2018-08-08 07:22] LABS: PHOSPHORUS 1.6 mg/dL (2.5-4.9)
[2018-08-08 07:24] LABS: TOTAL IRON BINDING CAPACITY 241 ug/dL (250-450)
[2018-08-08 08:21] VITALS: BP 120/74
[2018-08-08] MEDS: ENOXAPARIN 40MG/0.4ML SYR SUBCUT SCH (08:27)
[2018-08-08] MEDS: BUPROPION HCL 150MG TABLET XL 24HR PO SCH (08:27)
[2018-08-08] MEDS: FOLIC ACID 1MG TABLET PO SCH (08:27)
[2018-08-08] MEDS: ZINC SULFATE 220 MG ( 50 ) CAPSULE PO SCH (08:27)
[2018-08-08] MEDS: THIAMINE HCL 100MG TABLET PO SCH (08:27)
[2018-08-08] MEDS: METOPROLOL TARTRATE 25MG TABLET PO SCH ×2 (08:27→21:00)
[2018-08-08] MEDS: ASCORBIC ACID 500 MG TABLET PO SCH ×2 (08:27→21:13)
[2018-08-08] MEDS: MULTIVITAMINS,THER W-MINERALS TABLET PO SCH (08:27)
[2018-08-08] MEDS: FAMOTIDINE 20MG TABLET PO SCH (08:27)
[2018-08-08 09:58] LABS: FOLIC ACID (FOLATE) SERUM 9.1 ng/mL (>5.38)
[2018-08-08] MEDS: POTASSIUM-SODIUM PHOSPHATE POWDER PACKET PO SCH ×2 (11:43→17:10)
[2018-08-08] MEDS ORDERED: LACTULOSE 20G/30ML UDC PO PRN (12:00)
[2018-08-08 12:44] LABS: ETHANOL BLOOD < 10 mg/dL
[2018-08-08 12:49] LABS: T4 FREE 1.05 ng/dL (0.76-1.46)
[2018-08-08 15:06] LABS: *AMPHETAMINES SCREEN URINE NEGATIVE (NEGATIVE); *BARBITURATES SCREEN URINE PRESUMTIVE POSITIVE (NEGATIVE); *BENZODIAZEPINES SCREEN URINE PRESUMTIVE POSITIVE (NEGATIVE); *COCAINE SCREEN URINE NEGATIVE (NEGATIVE)
[2018-08-08 15:07] LABS: CANNABINOID URINE SCREEN NEGATIVE (NEGATIVE); METHADONE URINE SCREEN NEGATIVE (NEGATIVE); OPIATES URINE SCREEN NEGATIVE (NEGATIVE); PHENCYCLIDINE URINE SCREEN NEGATIVE (NEGATIVE)
[2018-08-08 20:00] VITALS: BP 102/68
[2018-08-08] MEDS: ATORVASTATIN CALCIUM 10MG TABLET PO SCH (21:13)
[2018-08-08] MEDS: TRAMADOL 50MG TABLET PO PRN (21:14)
[2018-08-09] MEDS: DILTIAZEM HCL 60MG TABLET PO SCH ×3 (05:36→18:00)
[2018-08-09] MEDS: SUCRALFATE 1G TABLET PO SCH ×4 (05:50→20:42)
[2018-08-09 07:09] LABS: CHLORIDE 103 mEq/L (98-107)
[2018-08-09 07:15] LABS: PHOSPHORUS 2.1 mg/dL (2.5-4.9)
[2018-08-09 08:00] VITALS: BP 122/85
[2018-08-09] MEDS: METOPROLOL TARTRATE 25MG TABLET PO SCH ×2 (09:00→21:00)
[2018-08-09] MEDS: THIAMINE HCL 100MG TABLET PO SCH (09:39)
[2018-08-09] MEDS: ZINC SULFATE 220 MG ( 50 ) CAPSULE PO SCH (09:39)
[2018-08-09] MEDS: BUPROPION HCL 150MG TABLET XL 24HR PO SCH (09:39)
[2018-08-09] MEDS: FOLIC ACID 1MG TABLET PO SCH (09:39)
[2018-08-09] MEDS: MULTIVITAMINS,THER W-MINERALS TABLET PO SCH (09:39)
[2018-08-09] MEDS: ASCORBIC ACID 500 MG TABLET PO SCH ×2 (09:39→20:42)
[2018-08-09] MEDS: FAMOTIDINE 20MG TABLET PO SCH (09:39)
[2018-08-09] MEDS: POTASSIUM-SODIUM PHOSPHATE POWDER PACKET PO SCH ×2 (09:41→17:02)
[2018-08-09] MEDS: ENOXAPARIN 40MG/0.4ML SYR SUBCUT SCH (09:41)
[2018-08-09] MEDS ORDERED: POTASSIUM CHLORIDE 20MEQ/PACKET PO NR (10:19)
[2018-08-09 20:00] VITALS: BP 107/58
[2018-08-09] MEDS: ATORVASTATIN CALCIUM 10MG TABLET PO SCH (20:42)
[2018-08-09] MEDS: TRAMADOL 50MG TABLET PO PRN (20:53)
[2018-08-10] MEDS: DILTIAZEM HCL 60MG TABLET PO SCH ×2 (00:16→05:55)
[2018-08-10] MEDS: SUCRALFATE 1G TABLET PO SCH ×4 (05:51→21:22)
[2018-08-10 07:53] LABS: CHLORIDE 103 mEq/L (98-107)
[2018-08-10 08:00] VITALS: BP 105/69
[2018-08-10 08:02] LABS: PHOSPHORUS 2.9 mg/dL (2.5-4.9)
[2018-08-10] MEDS: METOPROLOL TARTRATE 25MG TABLET PO SCH ×2 (09:00→21:57)
[2018-08-10] MEDS: FAMOTIDINE 20MG TABLET PO SCH (10:26)
[2018-08-10] MEDS: MULTIVITAMINS,THER W-MINERALS TABLET PO SCH (10:26)
[2018-08-10] MEDS: ASCORBIC ACID 500 MG TABLET PO SCH ×2 (10:26→21:22)
[2018-08-10] MEDS: THIAMINE HCL 100MG TABLET PO SCH (10:26)
[2018-08-10] MEDS: ZINC SULFATE 220 MG ( 50 ) CAPSULE PO SCH (10:26)
[2018-08-10] MEDS: BUPROPION HCL 150MG TABLET XL 24HR PO SCH (10:27)
[2018-08-10] MEDS: FOLIC ACID 1MG TABLET PO SCH (10:27)
[2018-08-10] MEDS: ENOXAPARIN 40MG/0.4ML SYR SUBCUT SCH (10:27)
[2018-08-10] MEDS ORDERED: SODIUM CHLORIDE 0.9% 500 ML IV SCH (13:00)
[2018-08-10 20:00] VITALS: BP 121/74
[2018-08-10] MEDS: ATORVASTATIN CALCIUM 10MG TABLET PO SCH (21:20)
[2018-08-10] MEDS: TRAMADOL 50MG TABLET PO PRN (21:22)
[2018-08-11] MEDS: SUCRALFATE 1G TABLET PO SCH ×4 (07:53→22:10)
[2018-08-11 08:03] VITALS: BP 114/71
[2018-08-11] MEDS: ENOXAPARIN 40MG/0.4ML SYR SUBCUT SCH (08:52)
[2018-08-11] MEDS: FAMOTIDINE 20MG TABLET PO SCH (08:53)
[2018-08-11] MEDS: ZINC SULFATE 220 MG ( 50 ) CAPSULE PO SCH (08:53)
[2018-08-11] MEDS: ASCORBIC ACID 500 MG TABLET PO SCH ×2 (08:53→20:17)
[2018-08-11] MEDS: FOLIC ACID 1MG TABLET PO SCH (08:53)
[2018-08-11] MEDS: THIAMINE HCL 100MG TABLET PO SCH (08:53)
[2018-08-11] MEDS: MULTIVITAMINS,THER W-MINERALS TABLET PO SCH (08:53)
[2018-08-11] MEDS: METOPROLOL TARTRATE 25MG TABLET PO SCH ×2 (08:53→20:17)
[2018-08-11] MEDS: DOCUSATE SODIUM 100MG CAPSULE PO PRN (08:53)
[2018-08-11] MEDS: BUPROPION HCL 150MG TABLET XL 24HR PO SCH (08:53)
[2018-08-11] MEDS: TRAMADOL 50MG TABLET PO PRN ×2 (15:53→17:00)
[2018-08-11 20:00] VITALS: BP 123/71
[2018-08-11] MEDS: GUAIFENESIN 200MG/10ML SUGAR FREE UDC PO PRN (20:07)
[2018-08-11] MEDS: ATORVASTATIN CALCIUM 10MG TABLET PO SCH (20:18)
[2018-08-12] MEDS: TRAMADOL 50MG TABLET PO PRN ×2 (01:07→16:56)
[2018-08-12 07:37] LABS: BASOPHILS % 0.2 % (0.0-2.0); EOSINOPHILS % 1.8 % (0.0-5.0); HEMATOCRIT. 42.2 % (36.0-48.0); HEMOGLOBIN. 14.3 g/dL (12.0-16.0); LYMPHOCYTES % 14.8 % (20.0-50.0); MEAN CORPUSCULAR HEMOGLOBIN 33.2 pg (28.0-32.0); MEAN CORPUSCULAR VOLUME 97.7 fL (81.0-99.0); MEAN PLATELET VOLUME 9.2 fl (7.4-10.4); MONOCYTES % 13.2 % (2.0-8.0); PLATELET 208 x1000/uL (130-400); RED BLOOD CELL COUNT 4.32 mill/uL (4.2-5.4); RED CELL DISTRIBUTION WIDTH 15.2 % (11.6-14.6)
[2018-08-12 08:00] VITALS: BP 112/74
[2018-08-12 08:21] LABS: 25-HYDROXY VITAMIN D3 5.6 ng/mL (.)
[2018-08-12 08:28] LABS: CHLORIDE 102 mEq/L (98-107)
[2018-08-12] MEDS: FAMOTIDINE 20MG TABLET PO SCH (08:36)
[2018-08-12] MEDS: THIAMINE HCL 100MG TABLET PO SCH (08:36)
[2018-08-12] MEDS: ASCORBIC ACID 500 MG TABLET PO SCH ×2 (08:36→20:30)
[2018-08-12] MEDS: FOLIC ACID 1MG TABLET PO SCH (08:36)
[2018-08-12] MEDS: ZINC SULFATE 220 MG ( 50 ) CAPSULE PO SCH (08:36)
[2018-08-12] MEDS: BUPROPION HCL 150MG TABLET XL 24HR PO SCH (08:36)
[2018-08-12] MEDS: DOCUSATE SODIUM 100MG CAPSULE PO PRN (08:36)
[2018-08-12] MEDS: MULTIVITAMINS,THER W-MINERALS TABLET PO SCH (08:36)
[2018-08-12] MEDS: ENOXAPARIN 40MG/0.4ML SYR SUBCUT SCH (08:37)
[2018-08-12 08:38] LABS: PHOSPHORUS 3.2 mg/dL (2.5-4.9)
[2018-08-12] MEDS: SUCRALFATE 1G TABLET PO SCH ×4 (08:55→20:30)
[2018-08-12] MEDS: GUAIFENESIN/DM 600MG/30MG ER TAB 12HR PO PRN (10:55)
[2018-08-12 12:30] VITALS: BP 134/89
[2018-08-12] MEDS: METOPROLOL TARTRATE 25MG TABLET PO SCH ×2 (12:37→21:40)
[2018-08-12] MEDS: LIDOCAINE 5% PATCH TOP SCH (12:38)
[2018-08-12 20:00] VITALS: BP 112/64
[2018-08-12] MEDS: ATORVASTATIN CALCIUM 10MG TABLET PO SCH (20:30)
[2018-08-13] MEDS: TRAMADOL 50MG TABLET PO PRN ×3 (00:02→17:28)
[2018-08-13] MEDS: SUCRALFATE 1G TABLET PO SCH ×4 (06:10→21:18)
[2018-08-13 08:13] VITALS: BP 101/67
[2018-08-13] MEDS: ASCORBIC ACID 500 MG TABLET PO SCH ×2 (08:57→21:18)
[2018-08-13] MEDS: FOLIC ACID 1MG TABLET PO SCH (08:57)
[2018-08-13] MEDS: MULTIVITAMINS,THER W-MINERALS TABLET PO SCH (08:57)
[2018-08-13] MEDS: BUPROPION HCL 150MG TABLET XL 24HR PO SCH (08:57)
[2018-08-13] MEDS: FAMOTIDINE 20MG TABLET PO SCH (08:57)
[2018-08-13] MEDS: THIAMINE HCL 100MG TABLET PO SCH (08:57)
[2018-08-13] MEDS: ZINC SULFATE 220 MG ( 50 ) CAPSULE PO SCH (08:57)
[2018-08-13] MEDS: ENOXAPARIN 40MG/0.4ML SYR SUBCUT SCH (08:58)
[2018-08-13] MEDS: METOPROLOL TARTRATE 25MG TABLET PO SCH ×2 (08:59→21:18)
[2018-08-13] MEDS: LIDOCAINE 5% PATCH TOP SCH (09:01)
[2018-08-13] MEDS ORDERED: LORATADINE 10MG TABLET PO PRN (11:30)
[2018-08-13] MEDS: SODIUM CHLORIDE 45ML SPRAY NS PRN (12:46)
[2018-08-13 13:37] LABS: HEPATITIS B SURFACE ANTIGEN NEGATIVE
[2018-08-13 20:00] VITALS: BP 112/66
[2018-08-13] MEDS ORDERED: ERGOCALCIFEROL 50000UNITS CAPSULE PO SCH (20:00)
[2018-08-13] MEDS: ATORVASTATIN CALCIUM 10MG TABLET PO SCH (21:18)
[2018-08-14] MEDS: SODIUM CHLORIDE 45ML SPRAY NS PRN (03:43)
[2018-08-14] MEDS: SUCRALFATE 1G TABLET PO SCH ×4 (06:59→21:11)
[2018-08-14] MEDS: TRAMADOL 50MG TABLET PO PRN ×2 (07:11→17:32)
[2018-08-14 08:00] VITALS: BP 118/76
[2018-08-14] MEDS: LIDOCAINE 5% PATCH TOP SCH (08:34)
[2018-08-14] MEDS: ZINC SULFATE 220 MG ( 50 ) CAPSULE PO SCH (08:35)
[2018-08-14] MEDS: MULTIVITAMINS,THER W-MINERALS TABLET PO SCH (08:35)
[2018-08-14] MEDS: FAMOTIDINE 20MG TABLET PO SCH (08:35)
[2018-08-14] MEDS: GUAIFENESIN 200MG/10ML SUGAR FREE UDC PO PRN ×2 (08:35→21:11)
[2018-08-14] MEDS: ENOXAPARIN 40MG/0.4ML SYR SUBCUT SCH (08:35)
[2018-08-14] MEDS: ASCORBIC ACID 500 MG TABLET PO SCH ×2 (08:35→21:11)
[2018-08-14] MEDS: FOLIC ACID 1MG TABLET PO SCH (08:35)
[2018-08-14] MEDS: METOPROLOL TARTRATE 25MG TABLET PO SCH ×2 (08:36→21:11)
[2018-08-14] MEDS: THIAMINE HCL 100MG TABLET PO SCH (08:36)
[2018-08-14] MEDS: BUPROPION HCL 150MG TABLET XL 24HR PO SCH (08:36)
[2018-08-14 20:00] VITALS: BP 135/74
[2018-08-14] MEDS: ATORVASTATIN CALCIUM 10MG TABLET PO SCH (21:11)
[2018-08-15] MEDS: SUCRALFATE 1G TABLET PO SCH ×4 (06:03→20:48)
[2018-08-15] MEDS: TRAMADOL 50MG TABLET PO PRN ×2 (06:04→16:18)
[2018-08-15 08:00] VITALS: BP 110/70
[2018-08-15] MEDS: FOLIC ACID 1MG TABLET PO SCH (08:59)
[2018-08-15] MEDS: MULTIVITAMINS,THER W-MINERALS TABLET PO SCH (08:59)
[2018-08-15] MEDS: FAMOTIDINE 20MG TABLET PO SCH (08:59)
[2018-08-15] MEDS: BUPROPION HCL 150MG TABLET XL 24HR PO SCH (08:59)
[2018-08-15] MEDS: THIAMINE HCL 100MG TABLET PO SCH (08:59)
[2018-08-15] MEDS: ZINC SULFATE 220 MG ( 50 ) CAPSULE PO SCH (08:59)
[2018-08-15] MEDS: ASCORBIC ACID 500 MG TABLET PO SCH ×2 (08:59→20:48)
[2018-08-15] MEDS: METOPROLOL TARTRATE 25MG TABLET PO SCH ×2 (09:00→20:48)
[2018-08-15] MEDS: ENOXAPARIN 40MG/0.4ML SYR SUBCUT SCH (09:00)
[2018-08-15] MEDS: LIDOCAINE 5% PATCH TOP SCH (09:02)
[2018-08-15] MEDS: SODIUM CHLORIDE 45ML SPRAY NS PRN (16:19)
[2018-08-15] MEDS: GUAIFENESIN 200MG/10ML SUGAR FREE UDC PO PRN ×2 (17:45→20:49)
[2018-08-15 20:00] VITALS: BP 135/87
[2018-08-15] MEDS: ATORVASTATIN CALCIUM 10MG TABLET PO SCH (20:48)
[2018-08-16] MEDS ORDERED: TRAMADOL 50MG TABLET PO PRN (03:00)
[2018-08-16] MEDS: SUCRALFATE 1G TABLET PO SCH ×4 (05:11→20:40)
[2018-08-16] MEDS: GUAIFENESIN 200MG/10ML SUGAR FREE UDC PO PRN ×2 (05:31→23:21)
[2018-08-16 06:49] LABS: CHLORIDE 100 mEq/L (98-107)
[2018-08-16 06:59] LABS: PHOSPHORUS 2.7 mg/dL (2.5-4.9)
[2018-08-16 07:01] LABS: BASOPHILS % 0.9 % (0.0-2.0); EOSINOPHILS % 1.4 % (0.0-5.0); HEMATOCRIT. 40.5 % (36.0-48.0); HEMOGLOBIN. 13.8 g/dL (12.0-16.0); LYMPHOCYTES % 21.5 % (20.0-50.0); MEAN CORPUSCULAR HEMOGLOBIN 32.9 pg (28.0-32.0); MEAN CORPUSCULAR VOLUME 97.1 fL (81.0-99.0); MEAN PLATELET VOLUME 8.3 fl (7.4-10.4); MONOCYTES % 13.8 % (2.0-8.0); NEUTROPHILS % 62.4 % (40.0-76.0); PLATELET 238 x1000/uL (130-400); RED BLOOD CELL COUNT 4.18 mill/uL (4.2-5.4); RED CELL DISTRIBUTION WIDTH 15.4 % (11.6-14.6)
[2018-08-16 08:22] VITALS: BP 120/79
[2018-08-16] MEDS: ZINC SULFATE 220 MG ( 50 ) CAPSULE PO SCH (08:40)
[2018-08-16] MEDS: MULTIVITAMINS,THER W-MINERALS TABLET PO SCH (08:40)
[2018-08-16] MEDS: ASCORBIC ACID 500 MG TABLET PO SCH ×2 (08:40→20:42)
[2018-08-16] MEDS: FAMOTIDINE 20MG TABLET PO SCH (08:40)
[2018-08-16] MEDS: ENOXAPARIN 40MG/0.4ML SYR SUBCUT SCH (08:41)
[2018-08-16] MEDS: METOPROLOL TARTRATE 25MG TABLET PO SCH ×2 (08:41→21:00)
[2018-08-16] MEDS: FOLIC ACID 1MG TABLET PO SCH (08:41)
[2018-08-16] MEDS: THIAMINE HCL 100MG TABLET PO SCH (08:41)
[2018-08-16] MEDS: BUPROPION HCL 150MG TABLET XL 24HR PO SCH (08:41)
[2018-08-16] MEDS: LIDOCAINE 5% PATCH TOP SCH (08:42)
[2018-08-16] MEDS: SODIUM CHLORIDE 45ML SPRAY NS PRN (11:02)
[2018-08-16] MEDS: TRAMADOL 50MG TABLET PO PRN ×2 (14:02→20:41)
[2018-08-16 20:07] VITALS: BP 143/88
[2018-08-16] MEDS: ATORVASTATIN CALCIUM 10MG TABLET PO SCH (20:42)
[2018-08-17] MEDS: SUCRALFATE 1G TABLET PO SCH ×2 (05:55→12:30)
[2018-08-17 08:00] VITALS: BP 107/70
[2018-08-17] MEDS: FOLIC ACID 1MG TABLET PO SCH (08:18)
[2018-08-17] MEDS: ASCORBIC ACID 500 MG TABLET PO SCH (08:18)
[2018-08-17] MEDS: FAMOTIDINE 20MG TABLET PO SCH (08:18)
[2018-08-17] MEDS: MULTIVITAMINS,THER W-MINERALS TABLET PO SCH (08:18)
[2018-08-17] MEDS: ZINC SULFATE 220 MG ( 50 ) CAPSULE PO SCH (08:18)
[2018-08-17] MEDS: THIAMINE HCL 100MG TABLET PO SCH (08:18)
[2018-08-17] MEDS: BUPROPION HCL 150MG TABLET XL 24HR PO SCH (08:18)
[2018-08-17] MEDS: ENOXAPARIN 40MG/0.4ML SYR SUBCUT SCH (08:19)
[2018-08-17] MEDS: LIDOCAINE 5% PATCH TOP SCH (08:27)
[2018-08-17] MEDS: METOPROLOL TARTRATE 25MG TABLET PO SCH (08:31)
[2018-08-17 10:45] VITALS: BP 135/88
[2018-08-17 11:02] VITALS: BP 135/88
[2018-08-17] MEDS: GUAIFENESIN/DM 600MG/30MG ER TAB 12HR PO PRN (12:30)
== END 2018-08-17 13:40 | disposition home health service (06) | DRG 91 ==
PROVIDERS: ADMIT Physical Medicine & Rehabilitation Spinal Cord Injury Medicine; ATTEND Internal Medicine
DX: G92 Toxic encephalopathy (principal); I21.9 Acute myocardial infarction, unspecified; J44.1 Chronic obstructive pulmonary disease with (acute) exacerbation; F10.239 Alcohol dependence with withdrawal, unspecified; C94.00 Acute erythroid leukemia, not having achieved remission; G31.2 Degeneration of nervous system due to alcohol; E87.6 Hypokalemia; I10 Essential (primary) hypertension; G62.9 Polyneuropathy, unspecified; R53.81 Other malaise; F32.9 Major depressive disorder, single episode, unspecified; I25.10 Atherosclerotic heart disease of native coronary artery without angina pectoris; R29.810 Facial weakness; F41.9 Anxiety disorder, unspecified; E83.39 Other disorders of phosphorus metabolism; F09 Unspecified mental disorder due to known physiological condition; I25.2 Old myocardial infarction
CPT/HCPCS: 36415; 73521; 80048; 80305; 80320; 82140; 82306; 82607; 82728; 82746; 83036; 83540; 83550; 83735; 84100; 84134; 84439; 84443; 84481; 84484; 92523; 92610; 93005; 94640; 97110; 97112; 97116; 97162; 97166; 97530; 97535; A6261; G0515; J1650; J2930; J7040; J7620; G0480

== ENCOUNTER 2019-07-24 23:21 | Emergency (ER) | payer MEDICARE, BC ==
[~2019-07-24] VITALS: Ht 167.6 cm; Wt 61.0 kg
[2019-07-25] MEDS ORDERED: MAGNESIUM/ALUMINUM HYDROXIDE/SIMETHICONE 30ML UDC PO STA (01:12)
[2019-07-25 01:42] LABS: BASOPHILS % 0.5 % (0.0-2.0); EOSINOPHILS % 0.3 % (0.0-5.0); HEMATOCRIT. 48.3 % (36.0-48.0); LYMPHOCYTES % 19.1 % (20.0-50.0); MEAN CORPUSCULAR HEMOGLOBIN 32.2 pg (28.0-32.0); MEAN CORPUSCULAR VOLUME 91.8 fL (81.0-99.0); MEAN PLATELET VOLUME 8.4 fl (7.4-10.4); MONOCYTES % 8.4 % (2.0-8.0); NEUTROPHILS % 71.7 % (40.0-76.0); PLATELET 280 x1000/uL (130-400); RED BLOOD CELL COUNT 5.27 mill/uL (4.2-5.4)
[2019-07-25 01:45] LABS: CHLORIDE 100 mEq/L (98-107)
[2019-07-25] MEDS ORDERED: POTASSIUM CHLORIDE 20MEQ TABLET SR PO ONE (03:30)
[2019-07-25] MEDS ORDERED: ONDANSETRON 4MG ODT PO ONE (03:30)
[2019-07-25 03:42] VITALS: BP 126/83
== END 2019-07-25 04:14 | disposition home or self-care (01) ==
LOC: ER 23:21
DX: R10.13 Epigastric pain (principal); I10 Essential (primary) hypertension; E87.6 Hypokalemia; I25.2 Old myocardial infarction; Z91.012 Allergy to eggs; Z91.018 Allergy to other foods; Z79.82 Long term (current) use of aspirin
CPT/HCPCS: 36415; 71045; 74176; 80053; 83605; 83690; 84484; 85025; 93005; 99285; Q0162

== ENCOUNTER 2020-01-24 15:57 | Inpatient (IN) | payer MEDICARE, BC ==
[~2020-01-24] VITALS: Ht 165.1 cm
[2020-01-24] MEDS ORDERED: SODIUM CHLORIDE 0.9% 1,000 ML IV ONE (16:40)
[2020-01-24] MEDS ORDERED: KETOROLAC 30MG/ML VIAL IV STA (16:40)
[2020-01-24] MEDS ORDERED: ONDANSETRON HCL 4MG/2ML INJ IV STA (16:40)
[2020-01-24] MEDS ORDERED: FAMOTIDINE 20MG/2ML VIAL IV STA (16:40)
[2020-01-24 17:12] LABS: COLOR URINE YELLOW (YELLOW); KETONES URINE NEGATIVE (NEGATIVE); LEUKOCYTE ESTERASE URINE 1+ (NEGATIVE); NITRITE URINE NEGATIVE (NEGATIVE); OCCULT BLOOD URINE NEGATIVE (NEGATIVE); PROTEIN URINE NEGATIVE (NEGATIVE); SPECIFIC GRAVITY URINE 1.006 (1.005-1.030); UROBILINOGEN URINE 0.2 E.U./dL (0.2-1.0)
[2020-01-24 17:14] LABS: CLARITY URINE HAZY (CLEAR)
[2020-01-24 17:16] LABS: CHLORIDE 102 mEq/L (98-107)
[2020-01-24 17:20] LABS: INR 1.1
[2020-01-24 17:35] LABS: EOSINOPHILS % 1.3 % (0.0-5.0); HEMOGLOBIN. 15.9 g/dL (12.0-16.0); MEAN CORPUSCULAR HEMOGLOBIN 30.3 pg (28.0-32.0); MEAN CORPUSCULAR VOLUME 89.4 fL (81.0-99.0); MEAN PLATELET VOLUME 8.8 fl (7.4-10.4); MONOCYTES % 10.3 % (2.0-8.0); NEUTROPHILS % 53.4 % (40.0-76.0); PLATELET 182 x1000/uL (130-400); RED BLOOD CELL COUNT 5.26 mill/uL (4.2-5.4); RED CELL DISTRIBUTION WIDTH 16.3 % (11.6-14.6)
[2020-01-24] MEDS ORDERED: MORPHINE SULFATE 4 MG/ML CPJ (NOT FOR IM USE) IV ONE (18:15)
[2020-01-24] MEDS ORDERED: CLONIDINE 0.1MG TABLET PO PRN (18:45)
[2020-01-24] MEDS ORDERED: ONDANSETRON HCL 4MG/2ML INJ IV PRN (18:45)
[2020-01-24] MEDS ORDERED: ENOXAPARIN 40MG/0.4ML SYR SUBCUT SCH (18:45)
[2020-01-24] MEDS ORDERED: PIPERACILLIN/TAZ 3.375G PREMIX 50 ML IV SCH (18:45)
[2020-01-24] MEDS ORDERED: ACETAMINOPHEN 325MG TABLET PO PRN (18:45)
[2020-01-24] MEDS ORDERED: PIPERACILLIN/TAZOBACTAM 2.25 G in DEXTROSE 5% WATER 50 ML IV SCH (19:00)
[2020-01-24] MEDS: DEXT 5%/0.45% NACL 1000ML 1,000 ML IV SCH (19:12)
[2020-01-24] MEDS: PANTOPRAZOLE SODIUM 40 MG/VIAL IV SCH (19:29)
[2020-01-24 20:00] VITALS: BP 112/81
[2020-01-24 20:22] VITALS: BP 112/81
[2020-01-24] MEDS: ENOXAPARIN 30MG/0.3ML SYR SUBCUT SCH (20:40)
[2020-01-24] MEDS: HYDROMORPHONE HCL/PF 2MG/ML CPJ IV PRN (20:40)
[2020-01-24] MEDS: PIPERACILLIN/TAZOBACTAM 2.25 G in DEXTROSE 5% WATER 50 ML IV SCH (22:11)
[2020-01-24] MEDS ORDERED: OMEP40CA12 PO (23:08)
[2020-01-24] MEDS ORDERED: AMLO5TAB88 PO (23:08)
[2020-01-24] MEDS ORDERED: PREG75CA75 PO (23:08)
[2020-01-24] MEDS ORDERED: METR-167 PO (23:08)
[2020-01-24] MEDS ORDERED: POTA10TA42 PO (23:08)
[2020-01-24] MEDS ORDERED: METO-396 PO (23:08)
[2020-01-24] MEDS ORDERED: AMOX1TAB16 PO (23:08)
[2020-01-24] MEDS ORDERED: ASPI-1497 PO (23:08)
[2020-01-24] MEDS ORDERED: HYDR12.54 PO (23:08)
[2020-01-24] MEDS ORDERED: ATOR10TA69 PO (23:08)
[2020-01-24] MEDS ORDERED: SUCR1ORA15 PO (23:08)
[2020-01-24] MEDS ORDERED: OXYC-579 PO (23:08)
[2020-01-25] VITALS: BP 106/63
[2020-01-25] MEDS: HYDROMORPHONE HCL/PF 2MG/ML CPJ IV PRN ×5 (01:05→22:30)
[2020-01-25 04:00] VITALS: BP 104/56
[2020-01-25] MEDS: PIPERACILLIN/TAZOBACTAM 2.25 G in DEXTROSE 5% WATER 50 ML IV SCH ×3 (05:53→22:01)
[2020-01-25 07:44] LABS: BASOPHILS % 0.9 % (0.0-2.0); EOSINOPHILS % 3.3 % (0.0-5.0); HEMOGLOBIN. 13.5 g/dL (12.0-16.0); LYMPHOCYTES % 45.8 % (20.0-50.0); MEAN CORPUSCULAR HEMOGLOBIN 30.3 pg (28.0-32.0); MEAN CORPUSCULAR VOLUME 89.6 fL (81.0-99.0); MEAN PLATELET VOLUME 9.1 fl (7.4-10.4); PLATELET 161 x1000/uL (130-400); RED BLOOD CELL COUNT 4.46 mill/uL (4.2-5.4); RED CELL DISTRIBUTION WIDTH 16.3 % (11.6-14.6)
[2020-01-25 08:06] LABS: CHLORIDE 107 mEq/L (98-107)
[2020-01-25] MEDS: PANTOPRAZOLE SODIUM 40 MG/VIAL IV SCH (08:44)
[2020-01-25] MEDS: POTASSIUM CHLORIDE 20MEQ TABLET SR PO SCH (10:59)
[2020-01-25] MEDS: DEXT 5%/0.45% NACL 1000ML 1,000 ML IV SCH ×2 (14:12→22:02)
[2020-01-25 16:00] VITALS: BP 119/60
[2020-01-25] MEDS: ENOXAPARIN 30MG/0.3ML SYR SUBCUT SCH (19:59)
[2020-01-25 20:00] VITALS: BP 122/75
[2020-01-25 20:39] VITALS: BP 122/75
[2020-01-26 00:15] VITALS: BP 103/62
[2020-01-26 04:00] VITALS: BP 98/60
[2020-01-26] MEDS: PIPERACILLIN/TAZOBACTAM 2.25 G in DEXTROSE 5% WATER 50 ML IV SCH ×2 (06:01→14:00)
[2020-01-26 06:27] LABS: BASOPHILS % 1.1 % (0.0-2.0); HEMATOCRIT. 39.4 % (36.0-48.0); HEMOGLOBIN. 13.5 g/dL (12.0-16.0); LYMPHOCYTES % 37.3 % (20.0-50.0); MEAN CORPUSCULAR HEMOGLOBIN 30.8 pg (28.0-32.0); MEAN CORPUSCULAR VOLUME 90.2 fL (81.0-99.0); MEAN PLATELET VOLUME 8.9 fl (7.4-10.4); MONOCYTES % 10.5 % (2.0-8.0); NEUTROPHILS % 45.1 % (40.0-76.0); PLATELET 162 x1000/uL (130-400); RED BLOOD CELL COUNT 4.36 mill/uL (4.2-5.4); RED CELL DISTRIBUTION WIDTH 16.1 % (11.6-14.6)
[2020-01-26 06:28] LABS: CHLORIDE 109 mEq/L (98-107)
[2020-01-26 08:00] VITALS: BP 103/59
[2020-01-26] MEDS: PANTOPRAZOLE SODIUM 40 MG/VIAL IV SCH (08:38)
[2020-01-26] MEDS: POTASSIUM CHLORIDE 20MEQ TABLET SR PO SCH (08:38)
[2020-01-26] MEDS: HYDROMORPHONE HCL/PF 2MG/ML CPJ IV PRN ×2 (09:05→12:14)
[2020-01-26 12:00] VITALS: BP 111/63
[2020-01-26] MEDS ORDERED: TRAMADOL 50MG TABLET PO PRN (13:00)
[2020-01-26] MEDS ORDERED: NITR-87 MT (13:05)
[2020-01-26] MEDS ORDERED: TRAM50TA3 MT (13:05)
[2020-01-26 13:44] VITALS: BP 111/63
== END 2020-01-26 14:33 | disposition home health service (06) | DRG 392 ==
LOC: ER 15:57 → 6WST 18:02 → EDBEDREQTM 18:09 → EDBEDREQ 18:09 → ENRESERV 19:23
PROVIDERS: ADMIT Hospitalist; ATTEND Hospitalist
DX: R10.9 Unspecified abdominal pain (principal); E44.0 Moderate protein-calorie malnutrition; N39.0 Urinary tract infection, site not specified; Z68.1 Body mass index [BMI] 19.9 or less, adult; K80.20 Calculus of gallbladder without cholecystitis without obstruction; I10 Essential (primary) hypertension; E87.6 Hypokalemia; I25.10 Atherosclerotic heart disease of native coronary artery without angina pectoris; K82.8 Other specified diseases of gallbladder; Z87.11 Personal history of peptic ulcer disease; Z91.012 Allergy to eggs; I25.2 Old myocardial infarction; Z91.02 Food additives allergy status; Z87.440 Personal history of urinary (tract) infections; Z79.82 Long term (current) use of aspirin; Z79.899 Other long term (current) drug therapy
CPT/HCPCS: 36415; 74176; 76700; 80053; 81003; 85025; 93005; 93970; 96374; 99285; C9113; J1170; J1650; J1885; J2270; J2405; J2543; J3490; J7030; J7060

== ENCOUNTER 2021-03-10 09:02 | Emergency (ER) | payer MEDICARE, BC ==
[~2021-03-10] VITALS: Ht 167.6 cm; Wt 50.0 kg
[~2021-03-10 09:02] MED LIST changes: -AMLO10TA4 MT; -ASPI-1158 MT; +ASPI-1497 PO; +ATOR10TA69 PO; -FAMO20TA8 MT; +HYDR-4001 MT; +HYDR12.54 PO; +METO-396 PO; +OMEP40CA20 PO; +OXYC-485 PO; +POTA10TA42 PO; +PREG75CA75 PO; +SUCR1ORA15 PO
[2021-03-10] MEDS ORDERED: ONDANSETRON HCL 4MG/2ML INJ IV STA (09:30)
[2021-03-10] MEDS ORDERED: MORPHINE SULFATE 4 MG/ML CPJ (NOT FOR IM USE) IV STA (09:30)
[2021-03-10] MEDS ORDERED: MAGNESIUM/ALUMINUM HYDROXIDE/SIMETHICONE 30ML UDC PO ONE (09:30)
[2021-03-10] MEDS ORDERED: FAMOTIDINE 20MG/2ML VIAL IV ONE (09:30)
[2021-03-10] MEDS ORDERED: SODIUM CHLORIDE 0.9% 1,000 ML IV ONE (09:30)
[2021-03-10 10:01] LABS: EOSINOPHILS % 0.4 % (0.0-5.0); HEMATOCRIT. 53.1 % (36.0-48.0); HEMOGLOBIN. 17.4 g/dL (12.0-16.0); LYMPHOCYTES % 19.9 % (20.0-50.0); MEAN CORPUSCULAR HEMOGLOBIN 28.8 pg (28.0-32.0); MEAN PLATELET VOLUME 8.7 fl (7.4-10.4); NEUTROPHILS % 71.7 % (40.0-76.0); PLATELET 225 x1000/uL (130-400); RED BLOOD CELL COUNT 6.03 mill/uL (4.2-5.4)
[2021-03-10 10:01] LABS: CLARITY URINE CLEAR (CLEAR); COLOR URINE YELLOW (YELLOW); KETONES URINE TRACE (NEGATIVE); LEUKOCYTE ESTERASE URINE NEGATIVE (NEGATIVE); NITRITE URINE NEGATIVE (NEGATIVE); OCCULT BLOOD URINE NEGATIVE (NEGATIVE); PH URINE 8.5 (4.5-8.0); PROTEIN URINE NEGATIVE (NEGATIVE)
[2021-03-10 10:08] LABS: CHLORIDE 100 mEq/L (98-107)
[2021-03-10] MEDS ORDERED: MORPHINE SULFATE 2 MG/ML CPJ (NOT FOR IM USE) IV NR (10:30)
[2021-03-10] MEDS ORDERED: OMEP20TA2 MT (11:48)
[2021-03-10] MEDS ORDERED: FAMO-135 MT (11:48)
[2021-03-10 11:50] VITALS: BP 154/85
== END 2021-03-10 12:06 | disposition home or self-care (01) ==
LOC: ER 09:02
DX: R10.13 Epigastric pain (principal); I10 Essential (primary) hypertension; I25.2 Old myocardial infarction; Z90.49 Acquired absence of other specified parts of digestive tract; Z79.899 Other long term (current) drug therapy
CPT/HCPCS: 36415; 71045; 74176; 80053; 81003; 83690; 85025; 93005; 96361; 96374; 96375; 99285; J2270; J2405; J3490; J7030

== ENCOUNTER 2021-12-13 18:10 | Emergency (ER) | payer MEDICARE, BC ==
[~2021-12-13] VITALS: Ht 167.6 cm; Wt 57.0 kg
[~2021-12-13 18:10] MED LIST changes: -ASPI-1497 PO; -ATOR10TA69 PO; -HYDR-4001 MT; -HYDR12.54 PO; +LEVA15HF4 IH; +LIDO700A30 TOP; +METH-816 PO; -METO-396 PO; -METO25TA6 MT; +NICO-789 TD; -OMEP40CA20 PO; -OXYC-485 PO; -POTA10TA42 PO; -PREG150C PO; -PREG75CA75 PO; -SUCR1ORA15 PO; -TRAM50TA3 MT
[2021-12-13] MEDS ORDERED: IPRATROPIUM BROMIDE (0.02%) 0.5MG/2.5ML NEB HHN STA (19:34)
[2021-12-13] MEDS ORDERED: ALBUTEROL (0.083%) 2.5MG/3ML NEB HHN STA (19:34)
[2021-12-13] MEDS ORDERED: METHYLPREDNISOLONE SOD SUCC 125 MG/2 ML VIAL IV STA (19:34)
[2021-12-13] MEDS ORDERED: HYDROCODONE/ACETAMINOPHEN 5/325MG TABLET PO ONE (20:00)
[2021-12-13 20:01] LABS: EOSINOPHILS % 2.3 % (0.0-5.0); HEMATOCRIT. 43.7 % (36.0-48.0); HEMOGLOBIN. 14.3 g/dL (12.0-16.0); LYMPHOCYTES % 34.5 % (20.0-50.0); MEAN CORPUSCULAR HEMOGLOBIN 29.6 pg (28.0-32.0); MEAN CORPUSCULAR VOLUME 90.2 fL (81.0-99.0); MEAN PLATELET VOLUME 8.2 fl (7.4-10.4); MONOCYTES % 9.4 % (2.0-8.0); NEUTROPHILS % 52.8 % (40.0-76.0); PLATELET 192 x1000/uL (130-400); RED BLOOD CELL COUNT 4.84 mill/uL (4.2-5.4)
[2021-12-13 20:08] LABS: CHLORIDE 100 mEq/L (98-107)
[2021-12-13] MEDS ORDERED: ALBUTEROL (0.083%) 2.5MG/3ML NEB ONE (21:23)
[2021-12-13] MEDS ORDERED: IPRATROPIUM BROMIDE (0.02%) 0.5MG/2.5ML NEB ONE (21:23)
[2021-12-13] MEDS ORDERED: ALBUTEROL (0.083%) 2.5MG/3ML NEB HHN NR (21:45)
[2021-12-13] MEDS ORDERED: IPRATROPIUM BROMIDE (0.02%) 0.5MG/2.5ML NEB HHN NR (21:45)
[2021-12-14] MEDS ORDERED: HYDR-4001 MT (02:31)
[2021-12-14 03:00] VITALS: BP 145/82
== END 2021-12-14 04:16 | disposition home or self-care (01) ==
LOC: ER 18:10
DX: J44.9 Chronic obstructive pulmonary disease, unspecified (principal); M17.11 Unilateral primary osteoarthritis, right knee; I10 Essential (primary) hypertension; I25.2 Old myocardial infarction; Z90.49 Acquired absence of other specified parts of digestive tract; Z20.822 Contact with and (suspected) exposure to COVID-19; Z91.012 Allergy to eggs; Z91.018 Allergy to other foods
CPT/HCPCS: 36415; 71045; 73560; 80053; 83880; 84484; 85025; 87426; 93005; 94640; 96374; 99285; C9803; J2930; J7030

== ENCOUNTER 2024-06-05 20:44 | Inpatient (IN) | payer MEDICARE, BC ==
[~2024-06-05] VITALS: Ht 153.9 cm; Wt 63.5 kg
[2024-06-05 20:00] VITALS: BP 121/58; PULSE 103; RESP 18; TEMP 36.6696; O2SAT 97
[2024-06-05 20:30] VITALS: BP 121/58; PULSE 70; RESP 18; TEMP 36.696
[~2024-06-05 20:44] MED LIST changes: +AMLO2.5T45 PO; +ASPI-1406 PO; +AZIT500T8 MT; +FAMO20TA8 PO; +FLUT1DIS6 INH; -LEVA15HF4 IH; +LEVA15HF9 IH; -METH-816 PO; +PROT40 MT
[2024-06-06] MEDS ORDERED: DOCUSATE SODIUM 250MG CAPSULE PO PRN (01:00)
[2024-06-06] MEDS ORDERED: NALOXONE HCL 0.4MG/ML 1ML VIAL IV PRN (01:00)
[2024-06-06] MEDS ORDERED: NITROGLYCERIN 0.4MG TABLET SL SL PRN (01:00)
[2024-06-06] MEDS ORDERED: CLONIDINE 0.1MG TABLET PO PRN (01:00)
[2024-06-06] MEDS ORDERED: ACETAMINOPHEN 325MG TABLET PO PRN (01:00)
[2024-06-06] MEDS: HYDROCODONE/ACETAMINOPHEN 7.5/325MG TABLET PO PRN (03:57)
[2024-06-06 08:00] VITALS: BP 108/59; PULSE 81; RESP 18; TEMP 36.114; O2SAT 99
[2024-06-06] MEDS: ENOXAPARIN 60MG/0.6ML SYR SUBCUT SCH (09:00)
[2024-06-06] MEDS: METOPROLOL TARTRATE 25MG TABLET PO SCH (09:00)
[2024-06-06 09:59] LABS: BASOPHILS % 1.3 % (0.0-2.0); EOSINOPHILS % 6.2 % (0.0-5.0); HEMATOCRIT. 41.5 % (36.0-48.0); HEMOGLOBIN. 13.8 g/dL (12.0-16.0); LYMPHOCYTES % 20.3 % (20.0-50.0); MEAN CORPUSCULAR HEMOGLOBIN 32.3 pg (28.0-32.0); MEAN CORPUSCULAR HGB CONC 33.3 g/dL (31.0-37.0); MEAN PLATELET VOLUME 9.2 fl (7.4-10.4); MONOCYTES % 10.9 % (2.0-8.0); NEUTROPHILS % 61.3 % (40.0-76.0); PLATELET 226 x1000/uL (130-400); RED BLOOD CELL COUNT 4.28 mill/uL (4.2-5.4); RED CELL DISTRIBUTION WIDTH 13.5 % (11.6-14.6); WHITE BLOOD COUNT 4.4 x1000/uL (4.5-11.0)
[2024-06-06 10:01] LABS: CHLORIDE 103 mEq/L (98-107); POTASSIUM 4.7 mEq/L (3.5-5.1); SODIUM 139 mEq/L (136-145)
[2024-06-06 10:03] LABS: CALCIUM 9.2 mg/dL (8.7-10.4); CARBON DIOXIDE 30 mEq/L (21-32)
[2024-06-06 10:08] LABS: CREATININE 1.1 mg/dL (0.6-1.0); GLUCOSE 110 mg/dL (70-105); UREA NITROGEN BLOOD 11 mg/dL (9-23)
[2024-06-06 10:10] LABS: ALANINE AMINOTRANSFERASE 14 IU/L (10-49); ASPARTATE AMINOTRANSFERASE 13 IU/L (<34); BILIRUBIN TOTAL 0.6 mg/dL (0.1-1.0); PROTEIN TOTAL 6.8 g/dL (6.0-8.3)
[2024-06-06] MEDS: FAMOTIDINE 20MG TABLET PO SCH (10:16)
[2024-06-06] MEDS: ASPIRIN 81MG EC TABLET PO SCH (10:16)
[2024-06-06] MEDS: ZINC SULFATE 220 MG ( 50 ) CAPSULE PO SCH (10:16)
[2024-06-06] MEDS: ASCORBIC ACID 500 MG TABLET PO SCH (10:17)
[2024-06-06] MEDS: IPRATROPIUM/ALBUTEROL 0.5-3(2.5)MG/3ML NEB HHN PRN (11:22)
[2024-06-06 11:24] VITALS: PULSE 89; RESP 18; O2SAT 99
[2024-06-06 12:00] VITALS: BP 115/66; PULSE 86; RESP 18; TEMP 36.6696; O2SAT 98
[2024-06-06 20:00] VITALS: BP 89/53; PULSE 84; RESP 18; TEMP 37.00296; O2SAT 98
[2024-06-06] MEDS: ATORVASTATIN CALCIUM 40MG TABLET PO SCH (20:19)
[2024-06-06 22:51] VITALS: PULSE 89; RESP 20; O2SAT 99
[2024-06-07 06:42] LABS: BASOPHILS % 0.9 % (0.0-2.0); EOSINOPHILS % 5.3 % (0.0-5.0); HEMATOCRIT. 41.2 % (36.0-48.0); HEMOGLOBIN. 13.9 g/dL (12.0-16.0); LYMPHOCYTES % 14.7 % (20.0-50.0); MEAN CORPUSCULAR HEMOGLOBIN 32.4 pg (28.0-32.0); MEAN CORPUSCULAR HGB CONC 33.7 g/dL (31.0-37.0); MEAN CORPUSCULAR VOLUME 96.3 fL (81.0-99.0); MEAN PLATELET VOLUME 8.9 fl (7.4-10.4); MONOCYTES % 10.4 % (2.0-8.0); NEUTROPHILS % 68.7 % (40.0-76.0); PLATELET 231 x1000/uL (130-400); RED BLOOD CELL COUNT 4.27 mill/uL (4.2-5.4); RED CELL DISTRIBUTION WIDTH 13.7 % (11.6-14.6); WHITE BLOOD COUNT 5.3 x1000/uL (4.5-11.0)
[2024-06-07 07:24] LABS: CHLORIDE 104 mEq/L (98-107); POTASSIUM 4.9 mEq/L (3.5-5.1); SODIUM 139 mEq/L (136-145)
[2024-06-07 07:26] LABS: CARBON DIOXIDE 29 mEq/L (21-32)
[2024-06-07 07:27] LABS: CALCIUM 9.5 mg/dL (8.7-10.4)
[2024-06-07 07:31] LABS: CREATININE 0.9 mg/dL (0.6-1.0); GLUCOSE 102 mg/dL (70-105); IRON 68 ug/dL (50-170)
[2024-06-07 07:32] LABS: PROTEIN TOTAL 6.5 g/dL (6.0-8.3); UREA NITROGEN BLOOD 9 mg/dL (9-23)
[2024-06-07 07:33] LABS: ALANINE AMINOTRANSFERASE 13 IU/L (10-49); ALBUMIN 3.9 g/dL (3.2-4.8); ASPARTATE AMINOTRANSFERASE 14 IU/L (<34); THYROID STIMULATING HORMONE 0.92 uIU/mL (0.55-4.78)
[2024-06-07 07:34] LABS: BILIRUBIN TOTAL 0.7 mg/dL (0.1-1.0); TOTAL IRON BINDING CAPACITY 151 ug/dl (250-425)
[2024-06-07 07:38] LABS: VITAMIN B12 SERUM 688 pg/mL (211-911)
[2024-06-07 07:39] LABS: FERRITIN 114 ng/mL (10-291)
[2024-06-07 07:40] LABS: FOLIC ACID (FOLATE) SERUM 13.04 ng/mL (>5.38)
[2024-06-07 08:00] VITALS: BP 110/65; PULSE 96; RESP 18; TEMP 36.00288; O2SAT 98
[2024-06-07] MEDS: ACETAMINOPHEN 325MG TABLET PO PRN (12:27)
[2024-06-07] MEDS: ONDANSETRON HCL 4MG/2ML INJ IV PRN (12:29)
[2024-06-07 20:00] VITALS: BP 103/49; PULSE 90; RESP 18; TEMP 36.3918; O2SAT 99
[2024-06-07 22:13] VITALS: PULSE 77; RESP 20; O2SAT 97
[2024-06-08] VITALS: BP 111/48; PULSE 88; RESP 18; TEMP 36.50292; O2SAT 98
[2024-06-08 03:58] VITALS: PULSE 79; RESP 20; O2SAT 96
[2024-06-08 04:00] VITALS: BP 121/56; PULSE 94; RESP 18; TEMP 36.55848; O2SAT 97
[2024-06-08 08:00] VITALS: BP 104/70; PULSE 78; RESP 17; TEMP 36.61404; O2SAT 99
[2024-06-08 20:00] VITALS: BP 148/55; PULSE 82; RESP 18; TEMP 36.28068; O2SAT 98
[2024-06-08] MEDS: ERGOCALCIFEROL 50000UNITS CAPSULE PO SCH (20:18)
[2024-06-09 04:39] VITALS: PULSE 72; RESP 20; O2SAT 96
[2024-06-09 08:00] VITALS: BP 108/56; PULSE 70; RESP 18; TEMP 36.61404; O2SAT 98
[2024-06-09 20:00] VITALS: BP 101/74; PULSE 81; RESP 18; TEMP 36.05844; O2SAT 97
[2024-06-09 21:26] VITALS: PULSE 82; RESP 20; O2SAT 96
[2024-06-10] VITALS: BP 115/72; PULSE 90; RESP 19; TEMP 36.00288; O2SAT 100
[2024-06-10 08:00] VITALS: BP 114/57; PULSE 91; RESP 18; TEMP 36.22512; O2SAT 98
[2024-06-10] MEDS: GUAIFENESIN 200MG/10ML SUGAR FREE UDC PO PRN (09:31)
[2024-06-10 20:00] VITALS: BP 99/46; PULSE 86; RESP 18; TEMP 36.50292; O2SAT 97
[2024-06-10 20:07] VITALS: PULSE 85; RESP 20
[2024-06-11] VITALS: BP 109/52; PULSE 66; RESP 19; TEMP 36.55848; O2SAT 94
[2024-06-11] MEDS: HYDROCODONE/ACETAMINOPHEN 7.5/325MG TABLET PO PRN ×3 (03:30→14:30)
[2024-06-11 04:00] VITALS: BP 118/68; PULSE 74; RESP 19; TEMP 36.9474; O2SAT 95
[2024-06-11 08:00] VITALS: BP 119/61; PULSE 83; RESP 18; TEMP 36.50292; O2SAT 93
[2024-06-11] MEDS: MAGNESIUM/ALUMINUM HYDROXIDE/SIMETHICONE 30ML UDC PO PRN (09:05)
[2024-06-11] MEDS: ONDANSETRON 4MG ODT PO PRN (11:16)
[2024-06-11 20:00] VITALS: BP 114/61; PULSE 78; RESP 20; TEMP 36.61404; O2SAT 97
[2024-06-12] VITALS: BP 113/55; PULSE 72; RESP 20; TEMP 36.55848; O2SAT 98
[2024-06-12 04:00] VITALS: BP 115/60; PULSE 70; RESP 20; TEMP 36.3918; O2SAT 98
[2024-06-12 08:00] VITALS: BP 121/71; PULSE 60; RESP 19; TEMP 36.61404; O2SAT 95
[2024-06-12] MEDS ORDERED: NALOXONE HCL 0.4MG/ML 1ML VIAL IV PRN (10:30)
[2024-06-12] MEDS ORDERED: NALOXONE HCL 0.4MG/ML VIAL IV PRN ×2 (10:45)
[2024-06-12] MEDS: HYDROCODONE/ACETAMINOPHEN 7.5/325MG TABLET PO PRN (13:04)
[2024-06-12] MEDS ORDERED: PREG300C PO (13:07)
[2024-06-12 20:00] VITALS: BP 128/66; PULSE 77; RESP 18; TEMP 36.3918; O2SAT 99
[2024-06-13 08:00] VITALS: BP 101/60; PULSE 77; RESP 18; TEMP 35.66952; O2SAT 97
[2024-06-13 10:01] LABS: CHLORIDE 107 mEq/L (98-107); POTASSIUM 5.4 mEq/L (3.5-5.1); SODIUM 138 mEq/L (136-145)
[2024-06-13 10:02] LABS: CALCIUM 9.6 mg/dL (8.7-10.4); CARBON DIOXIDE 20 mEq/L (21-32)
[2024-06-13 10:07] LABS: GLUCOSE 122 mg/dL (70-105); UREA NITROGEN BLOOD 7 mg/dL (9-23)
[2024-06-13 10:09] LABS: ALANINE AMINOTRANSFERASE 23 IU/L (10-49); ALBUMIN 4.2 g/dL (3.2-4.8); ASPARTATE AMINOTRANSFERASE 44 IU/L (<34); BILIRUBIN TOTAL 0.6 mg/dL (0.1-1.0); PROTEIN TOTAL 6.9 g/dL (6.0-8.3)
[2024-06-13] MEDS: SODIUM ZIRCONIUM CYCLOSILICATE 10GM/PACKET PO NR (17:30)
[2024-06-13] MEDS ORDERED: SODIUM POLYSTYRENE SULFONATE 15 G/60 ML BOT PO ONE (17:30)
[2024-06-13 20:30] VITALS: BP 123/63; PULSE 78; RESP 18; TEMP 36.22512; O2SAT 99
[2024-06-13 21:49] LABS: EOSINOPHILS % 8.4 % (0.0-5.0); HEMATOCRIT. 40.6 % (36.0-48.0); HEMOGLOBIN. 13.6 g/dL (12.0-16.0); LYMPHOCYTES % 24.8 % (20.0-50.0); MEAN CORPUSCULAR HEMOGLOBIN 32.2 pg (28.0-32.0); MEAN CORPUSCULAR HGB CONC 33.6 g/dL (31.0-37.0); MEAN CORPUSCULAR VOLUME 95.7 fL (81.0-99.0); MEAN PLATELET VOLUME 8.7 fl (7.4-10.4); MONOCYTES % 12.1 % (2.0-8.0); NEUTROPHILS % 53.7 % (40.0-76.0); PLATELET 250 x1000/uL (130-400); RED BLOOD CELL COUNT 4.24 mill/uL (4.2-5.4); RED CELL DISTRIBUTION WIDTH 13.5 % (11.6-14.6); WHITE BLOOD COUNT 5.1 x1000/uL (4.5-11.0)
[2024-06-14 08:00] VITALS: BP 107/56; PULSE 79; RESP 18; TEMP 35.72508; O2SAT 97
[2024-06-14 16:18] LABS: CALCIUM 9.4 mg/dL (8.7-10.4); CARBON DIOXIDE 27 mEq/L (21-32); CHLORIDE 107 mEq/L (98-107); POTASSIUM 3.8 mEq/L (3.5-5.1); SODIUM 142 mEq/L (136-145)
[2024-06-14 16:23] LABS: GLUCOSE 116 mg/dL (70-105); UREA NITROGEN BLOOD 10 mg/dL (9-23)
[2024-06-14 20:00] VITALS: BP 132/63; PULSE 84; RESP 18; TEMP 36.114; O2SAT 97
[2024-06-14] MEDS: PREGABALIN 50 MG CAPSULE PO SCH (21:13)
[2024-06-15 08:00] VITALS: BP 115/62; PULSE 96; RESP 18; TEMP 34.11384; O2SAT 99
[2024-06-15 12:57] VITALS: BP 115/62; PULSE 96; TEMP 93.4; O2SAT 99
== END 2024-06-15 16:40 | DRG 190 ==
PROVIDERS: ADMIT Physical Medicine & Rehabilitation Spinal Cord Injury Medicine; ATTEND Hospitalist
DX: J44.1 Chronic obstructive pulmonary disease with (acute) exacerbation (principal); I21.A1 Myocardial infarction type 2; J18.9 Pneumonia, unspecified organism; J96.20 Acute and chronic respiratory failure, unspecified whether with hypoxia or hypercapnia; N17.9 Acute kidney failure, unspecified; E11.65 Type 2 diabetes mellitus with hyperglycemia; R26.9 Unspecified abnormalities of gait and mobility; Z60.2 Problems related to living alone; E55.9 Vitamin D deficiency, unspecified; M47.812 Spondylosis without myelopathy or radiculopathy, cervical region; M50.30 Other cervical disc degeneration, unspecified cervical region; D50.9 Iron deficiency anemia, unspecified; M54.16 Radiculopathy, lumbar region; F39 Unspecified mood [affective] disorder; I10 Essential (primary) hypertension; R53.1 Weakness; E11.42 Type 2 diabetes mellitus with diabetic polyneuropathy; G89.4 Chronic pain syndrome; R06.2 Wheezing; I25.2 Old myocardial infarction; Z82.49 Family history of ischemic heart disease and other diseases of the circulatory system; Z90.710 Acquired absence of both cervix and uterus; Z87.891 Personal history of nicotine dependence; Z91.81 History of falling; Z79.899 Other long term (current) drug therapy; Z79.82 Long term (current) use of aspirin; Z90.49 Acquired absence of other specified parts of digestive tract
CPT/HCPCS: 36415; 80048; 80053; 82306; 82607; 82728; 82746; 82962; 83036; 83540; 83550; 84134; 84443; 85025; 92523; 92610; 94640; 97110; 97112; 97116; 97150; 97162; 97166; 97530; 97535; A4606; J1650; J2405; Q0162